=== PATIENT | female | born 1980 | race Caucasian/White ===

== ENCOUNTER 2016-09-25 14:36 | Emergency (ER) | payer OTHER ==
[2016-09-25 14:46] VITALS: RESP 18; TEMP 98.2
[2016-09-25] MEDS ORDERED: ACETAMINOPHEN TAB 500 MG TAB PO STA (15:47)
--- NOTE | 2016-09-25 15:51 | ED ---
General Adult HPI - General Chief complaint: Dental/Oral Stated complaint: Denatl Pain Time Seen by Provider: 09/25/16 15:40 Source: patient, RN notes reviewed Mode of arrival: ambulatory Limitations: no limitations - History of Present Illness Initial comments: This is a 36-year-old female presents with left-sided dental pain 2 days. Patient states she has multiple teeth missing but has never had pain this bad. Patient states she was on the way to the dentist today but was 10 minutes late so the dentist would not see her. Patient denies any fever/chills, vomiting/ diarrhea, sore throat, shortness of breath or dysphagia. Patient admits to some left-sided otalgia and to headache. Patient admits that she is approximately 11 weeks . Patient denies any purulent drainage or foul odor.Patient denies any recent chest pain, abdominal pain, back pain, numbness, tingling, hematuria, or visual changes, or any other complaints. - Related Data Previous Rx's Medication Instructions Recorded Amoxicillin 500 mg PO Q12HR 7 Days 09/25/16 Allergies Allergy/AdvReac Type Severity Reaction Status Date / Time venom-honey bee Allergy Anaphylaxis Verified 09/25/16 14:46 [bee venom (honey bee)] Review of Systems ROS Statement: Those systems with pertinent positive or pertinent negative responses have been documented in the HPI. ROS Other: All systems not noted in ROS Statement are negative. 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 Last drink 05/06/15 Past Drug Use History: Marijuana Additional Drug Use History / Comment(s): Marijuana used 2 days ago, "alot". - Past Family History Mother Family Medical History: Hyperlipidemia General Exam - General Exam Comments Initial Comments: General: The patient is awake and alert, in no distress, and does not appear acutely ill. Eye: Pupils are equal, round and reactive to light, extra-ocular movements are intact. No nystagmus. There is normal conjunctiva bilaterally. No signs of icterus. Ears: TMs pink and pearly with intact cone light bilaterally. Normal external ear canals. Mouth and throat: Multiple areas of tooth decay. Multiple cavities. Multiple fractured teeth to upper and lower gumlines. No purulent drainage, erythema, swelling, no sign of abscess. Patient is tender to palpation over teeth 11 through 15 approximately. There is some mild external facial swelling to the lower left jaw line. There are moist mucous membranes and no oral lesions. Neck: Left-sided submandibular lymph node present and tender. The neck is supple, there is no JVD. Cardiovascular: There is a regular rate and rhythm. No murmur, rub or gallop is appreciated. Respiratory: Lungs are clear to auscultation, respirations are non-labored, breath sounds are equal. No wheezes, stridor, rales, or rhonchi. Musculoskeletal: Normal ROM, no tenderness. Strength 5/5. Sensation intact. Radial Pulses equal bilaterally 2+. Neurological: A&O x 3. CN II-XII intact, There are no obvious motor or sensory deficits. Coordination appears grossly intact. Speech is normal. Skin: Mild external facial swelling to the lower left jaw line. No erythema, warmth or ecchymosis. Skin is warm and dry and no rashes or lesions are noted. Psychiatric: Cooperative, appropriate mood & affect, normal judgment. Limitations: no limitations Course Vital Signs 09/25/16 09/25/16 14:43 15:59 Temperature 98.2 F 98.2 F Pulse Rate 106 H 72 Respiratory 18 18 Rate Blood Pressure 168/114 158/93 O2 Sat by Pulse 100 100 Oximetry Medical Decision Making - Medical Decision Making This is a 36-year-old female presents with left-sided pain 2 days. On physical exam there are multiple areas of tooth decay. Multiple cavities. Multiple fractured teeth to the top and bottom gumline. No purulent drainage, erythema, swelling, no sign of abscess. Patient is tender to palpation over teeth 11 through 15 approximately. There is some mild external facial swelling to the lower jaw line. There are moist mucous membranes and no oral lesions. Left-sided submandibular lymph node present and tender. The neck is supple. Patient is afebrile in the EC. Discussed that since the patient is Tylenol is the only thing available for pain. Discussed warm compresses. Patient was given a dose of Tylenol in the EC today. Discussed the patient will be started on a course of amoxicillin. Discussed return parameters. Discussed close follow-up with a dentist. ([facility] dental plan: [id number] [facility] [place] [address], . [employer]: Have to pay $50 for x-rays and the rest is covered. [phone].) Discussed that patient should follow up with PCP in one to 2 days or return to the EC for any worsening symptoms or for any further concerns. Patient was receptive to this plan and patient will be discharged home. I discussed his case with attending physician Dr. Schmidt who agrees the plan as stated above. Disposition Clinical Impression: Pain, dental Disposition: HOME SELF-CARE Condition: Good Instructions: Toothache (ED) Additional Instructions: Please use antibiotics as prescribed. Please use [id number] Tylenol for pain. Use warm compresses to the area. Please follow-up with dentist as soon as possible. [facility] dental plan: [address] [place] [address], . [employer]: Have to pay $50 for x-rays and the rest is covered. [phone]. Please follow up with PCP tomorrow or return to the EC for any worsening symptoms or for any further concerns. Prescriptions: Amoxicillin 500 mg PO Q12HR 7 Days Referrals: None,Stated [Primary Care Provider] - 1-2 days
[2016-09-25 16:00] VITALS: BP 158/93; PULSE 72
== END 2016-09-25 16:03 | disposition home or self-care (01) ==
LOC: EC 14:36
DX: O26.91 Pregnancy related conditions, unspecified, first trimester (principal); K08.89 Other specified disorders of teeth and supporting structures; Z3A.11 11 weeks gestation of pregnancy; Z91.030 Bee allergy status; F17.200 Nicotine dependence, unspecified, uncomplicated
CPT/HCPCS: 99282

== ENCOUNTER → 2017-01-30 | Outpatient (CLI) | payer OTHER ==
[2017-01-30 12:58] LABS: Basophils % (A) 0 %; CH 32.1; CHCM 33.9; Eosinophils # (A) 0.1 k/uL (0-0.7); Eosinophils % (A) 1 %; HCT 36.5 % (34.0-46.0); HDW 2.47; HGB 12.1 gm/dL (11.4-16.0); Luc # (Auto) 0.22; Luc % (Auto) 2; Lymphocytes # (A) 2.1 k/uL (1.0-4.8); Lymphocytes % (A) 18 %; MCH 31.8 pg (25.0-35.0); MCHC 33.3 g/dL (31.0-37.0); MCV 95.4 fL (80.0-100.0); Mean Platelet Volume 6.4; Monocytes # (A) 0.5 k/uL (0-1.0); Monocytes % (A) 4 %; Neutrophils # (A) 8.9 k/uL (1.3-7.7); Neutrophils % (A) 75 %; RBC 3.82 m/uL (3.80-5.40); RDW 13.1 % (11.5-15.5); WBC 11.9 k/uL (3.8-10.6); WBC (Perox) 12.34
[2017-01-30 13:08] LABS: Creatinine,Urine Random 267.7 mg/dL
[2017-01-30 13:19] LABS: Bilirubin, Delta 0.2 mg/dL (0.0-0.2); Total Bilirubin 0.3 mg/dL (0.2-1.3); Total Protein 6.8 g/dL (6.3-8.2)
[2017-01-31 07:18] LABS: HIV-1/HIV-2 Ab Screen NONREAC (NON REAC)
== END | disposition home or self-care (01) ==
LOC: LABWHC1 11:08
PROVIDERS: ATTEND Midwife
DX: O13.9 Gestational [pregnancy-induced] hypertension without significant proteinuria, unspecified trimester (principal)
CPT/HCPCS: 36415; 80076; 81050; 82570; 82950; 84156; 85025; 86780; 87389

== ENCOUNTER → 2017-03-06 | Outpatient (CLI) | payer OTHER ==
[2017-03-06 15:46] LABS: Bilirubin, Delta 0.3 mg/dL (0.0-0.2); Total Bilirubin 0.5 mg/dL (0.2-1.3); Total Protein 6.9 g/dL (6.3-8.2)
[2017-03-06 16:03] LABS: Creatinine,Urine Random 237.2 mg/dL
== END | disposition home or self-care (01) ==
LOC: LABWHC1 14:57
PROVIDERS: ATTEND Midwife
DX: O13.9 Gestational [pregnancy-induced] hypertension without significant proteinuria, unspecified trimester (principal)
CPT/HCPCS: 36415; 80076; 81050; 82570; 84156

== ENCOUNTER 2017-03-31 00:22 | Emergency (ER) | payer OTHER ==
[2017-03-31] MEDS ORDERED: ACETAMINOPHEN TAB 325 MG TAB ONE (02:18)
[2017-03-31] MEDS ORDERED: CEPHALEXIN 500 MG CAP ONE (02:18)
[2017-03-31 05:46] LABS: Partial Thromboplastin Time 25.8 sec (22.0-30.0); Prothrombin Time 9.9 sec (9.0-12.0)
[2017-03-31 05:50] LABS: Basophils # (A) 0.1 k/uL (0-0.2); Basophils % (A) 1 %; CH 32.4; CHCM 34.7; Eosinophils # (A) 0.2 k/uL (0-0.7); Eosinophils % (A) 1 %; HCT 39.4 % (34.0-46.0); HDW 2.43; HGB 13.7 gm/dL (11.4-16.0); Luc # (Auto) 0.25; Luc % (Auto) 2; Lymphocytes % (A) 34 %; MCH 32.6 pg (25.0-35.0); MCHC 34.7 g/dL (31.0-37.0); Mean Platelet Volume 6.3; Monocytes # (A) 0.6 k/uL (0-1.0); Monocytes % (A) 5 %; Neutrophils # (A) 6.8 k/uL (1.3-7.7); Neutrophils % (A) 57 %; RBC 4.19 m/uL (3.80-5.40); RDW 13.5 % (11.5-15.5); WBC (Perox) 11.32
[2017-03-31 05:56] LABS: ALT 29 U/L (9-52); AST 18 U/L (14-36); Alkaline Phosphatase 87 U/L (38-126); Amylase 44 U/L (30-110); Anion Gap 11 mmol/L; Blood Urea Nitrogen 13 mg/dL (7-17); Calcium 9.1 mg/dL (8.4-10.2); Carbon Dioxide 17 mmol/L (22-30); Chloride 112 mmol/L (98-107); Glucose 78 mg/dL (74-99); Magnesium 1.6 mg/dL (1.6-2.3); Non-African American GFR(MDRD) >60 (>60 ml/min/1.73 sqM); Potassium 4.1 mmol/L (3.5-5.1); Sodium 140 mmol/L (137-145); Total Bilirubin 0.2 mg/dL (0.2-1.3)
[2017-03-31 06:10] LABS: Appearance,Urine Cloudy (Clear); Bacteria,Urine Rare /hpf; Bilirubin,Urine Negative (Negative); Glucose,Urine (UA) Negative (Negative); Ketones,Urine Negative (Negative); Leukocyte Esterase,Urine Large (Negative); Mucus,Urine Rare /hpf; Nitrite,Urine Negative (Negative); Particle Count 26540; Protein,Urine 2+ (Negative); RBC,Urine >182 /hpf (0-5); Specific Gravity,Urine 1.026 (1.001-1.035); Squamous Epithelial Cell,Urine 5 /hpf (0-4); UA Billing (MACRO vs. MICRO) MICRO; Urobilinogen,Urine <2.0 mg/dL (<2.0); WBC,Urine 135 /hpf (0-5)
[2017-03-31] MEDS ORDERED: SODIUM CHLORIDE 0.9% 1,000 ML BAG ONE (07:04)
== END 2017-03-31 02:15 | disposition home or self-care (01) ==
LOC: EC 00:22
DX: O86.20 Urinary tract infection following delivery, unspecified (principal); O99.89 Other specified diseases and conditions complicating pregnancy, childbirth and the puerperium; N81.10 Cystocele, unspecified; Z79.899 Other long term (current) drug therapy
CPT/HCPCS: 36415; 80053; 81001; 82150; 83690; 83735; 85025; 85610; 85730; 96360; 99284

== ENCOUNTER → 2018-03-05 | Outpatient (CLI) | payer OTHER ==
[2018-03-05 15:18] LABS: HCT 33.6 % (34.0-46.0); HGB 11.6 gm/dL (11.4-16.0); MCH 31.2 pg (25.0-35.0); MCHC 34.4 g/dL (31.0-37.0); MCV 90.7 fL (80.0-100.0); Mean Platelet Volume 6.2; Platelet Count 449 k/uL (150-450); RDW 13.5 % (11.5-15.5); WBC 12.3 k/uL (3.8-10.6)
[2018-03-05 15:29] LABS: Glucose 76 mg/dL (74-99)
--- NOTE | 2018-03-05 17:13 | US ---
EXAMINATION TYPE: US OB anatomy TA twin DATE OF EXAM: 03/05/2018 COMPARISON: NONE CLINICAL HISTORY: O36.62X0 large for dates 2nd trimester. Pt states confirm dates, LGA EXAMINATION TYPE: US OB anatomy TA twin DATE OF EXAM: 03/05/2018 COMPARISON: None TECHNIQUE: Transabdominal (TA) GESTATIONAL AGE / DATING Physician Established: (23 weeks/3 days) EDC: 06/29/2018 Dates by LMP: Unknown Dates by First Scan: No prior Dates by Current Scan Baby A: (19 weeks/3 days) EDC: 07/27/2018 Dates by Current Scan Baby B: (19 weeks/5 days) EDC: 07/25/2018 GENERAL TWIN SURVEY TWIN A LOCATION in regards to maternal abd: Right TWIN B LOCATION in regards to maternal abd: Left MEMBRANE SEEN: Yes CERVICAL LENGTH (transabdominal; norm > 3.0cm): 3.2 cm TWIN A: SURVEY/BIOMETRY PLACENTA: Posterior PREVIA: Low Lying MUNDO: 11.6 cm Normal PRESENTATION: Breech BPD: 4.5 cm 19 weeks / 5 days HC: 17.2 cm 19 weeks / 5 days AC: 14.0 cm 19 weeks / 2 days FL: 3.1 cm 19 weeks / 5 days ESTIMATED WEIGHT IN GRAMS: 296.8 grams ESTIMATED WEIGHT IN LBS/OZS: 0 lbs. 10 oz. WEIGHT PERCENTAGE BASED ON ESTABLISHED DATES: <3%% HC/AC: 1.23 Normal FL/AC: 22 Normal HEART RATE: 154 bpm RHYTHM: Normal ANATOMY SEEN (within normal limits): * Lateral Vent (< 1 cm) 0.6 cm * Cisterna Magna (< 1.1 cm) 0.5 cm * Nuchal Fold (< .6 cm) 0.2 cm * Cerebellum (varies with age) 2.0 cm Choroid Plexus (bilateral) Midline Falx Cavus Septi Pellucidi Four Chamber Heart Outflow tracts: LVOT Stomach Situs Diaphragm Bladder Cord Insert Three Vessel Cord Arms (bilateral) Legs (bilateral) Longitudinal Spine Transverse Spine ANATOMY NOT SEEN: RVOT - position Kidneys (bilateral) - position Nose / Lips - position TWIN B: SURVEY/BIOMETRY PLACENTA: Fundal PREVIA: No Previa MUNDO:? 10.6 cm??Normal PRESENTATION: Variable LIE: Transverse with head maternal Left BPD: 4.5 cm 19 weeks / 5 days HC: 17.2 cm 19 weeks / 5 days AC: 14.7 cm 20 weeks / 0 days FL: 3.2 cm 20 weeks / 0 days ESTIMATED WEIGHT IN GRAMS: 322.3 grams ESTIMATED WEIGHT IN LBS/OZS: 0 lbs. 11 oz. WEIGHT PERCENTAGE BASED ON ESTABLISHED DATES: <3%% HC/AC: 1.17 Normal FL/AC: 22 Normal HEART RATE: 143 bpm RHYTHM: Normal ANATOMY SEEN (within normal limits): * Lateral Vent (< 1 cm) 0.5 cm * Cisterna Magna (< 1.1 cm) 0.4 cm * Nuchal Fold (< .6 cm) 0.2 cm * Cerebellum (varies with age) 2.0 cm Choroid Plexus (bilateral) Midline Falx Cavus Septi Pellucidi Four Chamber Heart Outflow tracts: LVOT/RVOT Stomach Situs Nose / Lips Diaphragm Kidneys (bilateral) Bladder Cord Insert Three Vessel Cord Arms (bilateral) Legs (bilateral) ANATOMY NOT SEEN: Longitudinal Spine - position Transverse Spine - position Viable Twin gestation/membrane visualized/ visualized anatomy appears wnl at this time within both fetuses IMPRESSION: 1. Twin gestation with heart rate of twin A of 154 bpm and heart rate of twin B 143 bpm. Some anatomy is not seen of both twins as described above. Patient can return for additional anatomy exam. 2. Placenta is noted to be low-lying and can be reassessed later in gestation. 3. Sonographic gestational age of twin A of 19 weeks and 3 days and of twin B of 19 weeks and 5 days, discordant with the physician established dates. ?
[2018-03-05 20:48] LABS: HIV AB P24 Non-Reactive (Non-Reactive); HIV P24 AG Non-Reactive (Non-Reactive)
== END ==
LOC: RADUSWWP 14:59
PROVIDERS: ATTEND Obstetrics & Gynecology
DX: O30.002 Twin pregnancy, unspecified number of placenta and unspecified number of amniotic sacs, second trimester (principal); O36.62X0 Maternal care for excessive fetal growth, second trimester, not applicable or unspecified; O26.812 Pregnancy related exhaustion and fatigue, second trimester; Z3A.23 23 weeks gestation of pregnancy
CPT/HCPCS: 36415; 76811; 76812; 82565; 82947; 85027; 86762; 86780; 86850; 86900; 86901; 87340; 87390

== ENCOUNTER → 2018-04-21 | Outpatient (CLI) | payer OTHER ==
[2018-04-21 13:23] LABS: HCT 32.4 % (34.0-46.0); HGB 10.9 gm/dL (11.4-16.0); MCH 31.6 pg (25.0-35.0); MCHC 33.5 g/dL (31.0-37.0); MCV 94.3 fL (80.0-100.0); Mean Platelet Volume 6.3; Platelet Count 339 k/uL (150-450); RBC 3.44 m/uL (3.80-5.40); RDW 13.4 % (11.5-15.5); WBC 12.7 k/uL (3.8-10.6)
== END | disposition home or self-care (01) ==
LOC: LABWHC1 11:27
PROVIDERS: ATTEND Obstetrics & Gynecology
DX: Z34.82 Encounter for supervision of other normal pregnancy, second trimester (principal); Z3A.00 Weeks of gestation of pregnancy not specified
CPT/HCPCS: 36415; 82950; 85027

== ENCOUNTER 2018-06-08 15:39 | Outpatient (CLI) | payer OTHER ==
[2018-06-08 17:07] VITALS: BP 141/79; PULSE 96; RESP 16; TEMP 97.4
--- NOTE | 2018-07-23 18:02 | P.MSEPDOC ---
Presenting Problems - Arrival Data Date of Arrival on Unit: 06/08/18 Time of Arrival on Unit: 15:39 Mode of Transport: Ambulatory - Complaint OB-Reason for Admission/Chief Complaint: NST Comment: pt here per dr lind orders for nst, pt reports + fm x2, reports occasional contractions that are not painful, denies lof/vb, pt reports mild headache this afternoon and reports that she had blurry vision earlier today that is now resolved Medical History - Information : 10 Para: 4 Term: 4 : 0 Abortions: Spontaneous or Elective: 5 Number of Living Children: 4 - Gestational Age Gestational Age by BISI (wks/days): 33 Weeks and 2 Days - History Complications: Multiple Review of Systems - Review of Systems Constitutional: No problems Breast: No problems ENT: No problems Cardiovascular: No problems Respiratory: No problems Gastrointestinal: No problems Genitourinary: No problems Musculoskeletal: No problems Neurological: No problems Skin: No problems Vital Signs - Temperature Temperature: 97.4 F Temperature Source: Temporal Artery Scan - Pulse Right Brachial Pulse Rate: 96 Pulse Assessment Method: Automatic Cuff - Respirations Respiratory Rate: 16 Oxygen Delivery Method: Room Air O2 Sat by Pulse Oximetry: 97 - Blood Pressure Right Arm Blood Pressure: 141/79 Blood Pressure Mean: 99 Blood Pressure Source: Automatic Cuff - Comment Vital Signs Comment: bp recheck 115/77 and 120/76 Medical Screen Scoring (Pre) - Cervical Exam Dilation: Exam Deferred Effacement: Exam Deferred Membranes: Intact - Uterine Contractions Frequency: > 5 minutes apart = 1 Duration: > 40 seconds = 2 Intensity: N/A - Maternal Vital Signs Maternal Temperature: N/A Maternal Blood Pressure: N/A Signs of Preeclampsia: N/A Maternal Respirations: N/A - Pain Assessment Pain Scale Used: Numeric (1 - 10) Pain Intensity: 0 - Maternal Trauma Maternal Trauma: N/A - Assessment Baseline FHR: 135, 140 Heart Rate - NICHD Category: Category I (Normal) = 0 NST: Reactive Position: N/A Station: N/A - Total Score Total Score (Pre): 3 - Level of Risk Level of Risk: Low (0-5) Physician Notification (Pre) - Physician Notified Physician Notified Date: 06/08/18 Physician Notified Time: 16:14 Physician/Practitioner Notifed:: Dr Marquis Spoke With: Dr Marquis New Order Received: Yes (dc home) Disposition - Disposition OB Disposition: Discharge to home, Written follow up instructions reviewed Discharge Date: 06/08/18 Discharge Time: 16:15 I agree with the RN Medical Screening Exam: Yes Risk & Benefit of care provided described in d/c instruction: Yes Diagnosis: RELATED CONDITIONS, UNSPECIFIED, THIRD TRIMESTER
== END 2018-06-08 16:15 | disposition home or self-care (01) ==
LOC: FBPOP 15:39
PROVIDERS: ATTEND Obstetrics & Gynecology
DX: O26.93 Pregnancy related conditions, unspecified, third trimester (principal); Z3A.33 33 weeks gestation of pregnancy
CPT/HCPCS: 59025; G0463; 99213

== ENCOUNTER 2018-06-11 11:16 | Outpatient (CLI) | payer OTHER ==
--- NOTE | 2018-07-04 08:09 | P.MSEPDOC ---
Presenting Problems - Arrival Data Date of Arrival on Unit: 06/11/18 Time of Arrival on Unit: 11:16 Mode of Transport: Ambulatory Medical Screen Scoring (Post) - Cervical Exam Dilation: Exam Deferred Effacement: Exam Deferred Membranes: Intact - Uterine Contractions Frequency: N/A Duration: N/A Intensity: N/A - Maternal Vital Signs Maternal Temperature: N/A Maternal Blood Pressure: N/A Signs of Preeclampsia: N/A Maternal Respirations: N/A - Maternal Trauma Maternal Trauma: N/A - Assessment NST: Reactive Position: N/A Station: N/A - Total Score Total Score (Post): 0 - Post Treatment Level of Risk Post Treatment Level of Risk: Low (0-5) Physician Notification (Post) - Physician Notified Physician Notified Date: 06/11/18 Physician Notified Time: 12:00 Spoke With: Dr Street New Order Received: Yes - Notification Comment Comment: pt here for twin gestation NST's. reported reactive NST's and bp's to OB. orders received to dc pt home per t.oJosefina Street Disposition - Disposition OB Disposition: Triage, Discharge to home, Written follow up instructions reviewed Discharge Date: 06/11/18 Discharge Time: 12:08 I agree with the RN Medical Screening Exam: Yes Risk & Benefit of care provided described in d/c instruction: Yes Diagnosis: PREG CARE FOR PATIENT W RECURRENT PREG LOSS, THIRD TRIMESTER (nst twins)
== END 2018-06-11 12:08 | disposition home or self-care (01) ==
LOC: FBPOP 11:16
PROVIDERS: ATTEND Obstetrics & Gynecology
DX: O26.23 Pregnancy care for patient with recurrent pregnancy loss, third trimester (principal); O30.003 Twin pregnancy, unspecified number of placenta and unspecified number of amniotic sacs, third trimester; Z3A.00 Weeks of gestation of pregnancy not specified
CPT/HCPCS: 59025; G0463; 99213

== ENCOUNTER 2018-06-15 14:55 | Outpatient (CLI) | payer OTHER ==
[2018-06-15 17:52] VITALS: BP 120/76; PULSE 96; RESP 16; TEMP 98.8
--- NOTE | 2018-07-04 08:11 | P.MSEPDOC ---
Presenting Problems - Arrival Data Date of Arrival on Unit: 06/15/18 Time of Arrival on Unit: 14:55 Mode of Transport: Ambulatory - Complaint OB-Reason for Admission/Chief Complaint: NST Comment: pt states here for bi weekly NST twins Medical History - Information : 10 Para: 4 Term: 4 : 0 Abortions: Spontaneous or Elective: 4 Number of Living Children: 4 - Gestational Age Gestational Age by BISI (wks/days): 34 Weeks and 2 Days Review of Systems - Review of Systems Constitutional: No problems Breast: No problems ENT: No problems Cardiovascular: No problems Respiratory: No problems Gastrointestinal: No problems Genitourinary: No problems Musculoskeletal: No problems Neurological: No problems Skin: No problems Vital Signs - Temperature Temperature: 98.8 F Temperature Source: Oral - Pulse Right Pulse Rate: 96 Pulse Assessment Method: Automatic Cuff - Respirations Respiratory Rate: 16 Oxygen Delivery Method: Room Air O2 Sat by Pulse Oximetry: 98 - Blood Pressure Right Arm Blood Pressure: 120/76 Blood Pressure Mean: 90 Blood Pressure Source: Automatic Cuff Medical Screen Scoring (Pre) - Cervical Exam Dilation: Exam Deferred Effacement: Exam Deferred Membranes: Intact - Uterine Contractions Frequency: N/A Duration: N/A Intensity: N/A - Maternal Vital Signs Maternal Temperature: N/A Maternal Blood Pressure: N/A Signs of Preeclampsia: N/A Maternal Respirations: N/A - Pain Assessment Pain Scale Used: Numeric (1 - 10) Pain Intensity: 0 Pain Management Goal: 2 Pain Behavior: None Exhibited - Maternal Trauma Maternal Trauma: N/A - Assessment Baseline FHR: baby a 135 baby b 135 nst reactive baby a and b Heart Rate - NICHD Category: Category I (Normal) = 0 NST: Reactive Position: N/A Station: N/A - Total Score Total Score (Pre): 0 - Level of Risk Level of Risk: N/A Physician Notification (Pre) - Physician Notified Physician Notified Date: 06/15/18 Physician Notified Time: 16:00 Physician/Practitioner Notifed:: Dr Street Spoke With: Dr Street New Order Received: Yes - Notification Comment Comment: Discharge home Disposition - Disposition OB Disposition: Discharge to home Discharge Date: 06/15/18 Discharge Time: 16:07 I agree with the RN Medical Screening Exam: Yes Risk & Benefit of care provided described in d/c instruction: Yes Diagnosis: RELATED CONDITIONS, UNSPECIFIED, THIRD TRIMESTER (nst twins )
== END 2018-06-15 16:07 | disposition home or self-care (01) ==
LOC: FBPOP 14:55
PROVIDERS: ATTEND Obstetrics & Gynecology
DX: O30.003 Twin pregnancy, unspecified number of placenta and unspecified number of amniotic sacs, third trimester (principal); Z3A.34 34 weeks gestation of pregnancy
CPT/HCPCS: 59025

== ENCOUNTER 2018-06-19 11:27 | Observation (INO) | payer OTHER ==
--- NOTE | 2018-06-19 12:56 | US ---
EXAMINATION TYPE: US OB >= 14 wk twins DATE OF EXAM: 06/19/2018 COMPARISON: US 2017 CLINICAL HISTORY: MUNDO EFW twins. Sent by physician, for MUNDO and EFW GESTATIONAL AGE / DATING Physician Established: (34 weeks/6 days) EDC: 07/25/2018 Dates by LMP: Unknown Dates by First Scan for Baby A: (30 weeks/5 days) EDC: 07/27/2018 Dates by First Scan for Baby B: (33 weeks/3 days) EDC: 07/25/2018 Dates by Current Scan for Baby A: (32 weeks/5 days) EDC: 08/09/2018 Dates by Current Scan for Baby B: (34 weeks/1 days) EDC: 07/30/2018 MEMBRANE SEEN: yes TWIN A: SURVEY/BIOMETRY MUNDO:? 11.3 cm?Normal BPD: 8.2 cm 33 weeks / 0 days HC: 29.9 cm 33 weeks / 1 days AC: 27.8 cm 31 weeks / 6 days FL: 6.5 cm 33 weeks / 4 days ESTIMATED WEIGHT IN GRAMS: 2010 grams ESTIMATED WEIGHT IN LBS/OZS: 4 lbs. 7 oz. WEIGHT PERCENTAGE BASED ON ESTABLISHED DATES: 4% HC/AC: 1.08 Normal FL/AC: 23.46 Normal HEART RATE: 133 bpm RHYTHM: Normal TWIN B: SURVEY/BIOMETRY MUNDO: 14.3cm Normal BPD: 8.6 cm 34 weeks / 4 days HC: 31.3 cm 35 weeks / 1 days AC: 28.5 cm 32 weeks / 4 days FL: 6.8 cm 34 weeks / 6 days ESTIMATED WEIGHT IN GRAMS: 2244 grams ESTIMATED WEIGHT IN LBS/OZS: 4 lbs. 15 oz. WEIGHT PERCENTAGE BASED ON ESTABLISHED DATES: 16% HC/AC: 1.10 Normal FL/AC: 23.73 Normal HEART RATE: 166 bpm RHYTHM: Normal Viable twin IUP with baby A measuring 32 weeks 5 days with a heart rate of 133bpm and an estimated de livery date of 08/09/2018 and normal MUNDO, and baby B measuring 34 weeks 1 day with a heart rate of 16 6bpm and an estimated delivery date of 07/30/2018 and normal MUNDO. Tech sheet given to patient's nurse (Valerie) at end of exam. IMPRESSION: 1. Twin gestation with normal MUNDO of 11.3 cm for twin A and 14.3 cm for twin B. 2. Twin A measuring 32 weeks 5 days gestation with cardiac activity of 133 bpm. 3. Twin B measuring 34 weeks 1 days gestation with cardiac activity of 166 bpm.
[2018-06-19 13:46] VITALS: RESP 16
[2018-06-19 15:06] LABS: Appearance,Urine Clear (Clear); Bilirubin,Urine Negative (Negative); Blood,Urine Negative (Negative); Color,Urine Yellow; Glucose,Urine (UA) Negative (Negative); Ketones,Urine 2+ (Negative); Leukocyte Esterase,Urine Negative (Negative); Nitrite,Urine Negative (Negative); Protein,Urine Negative (Negative); Specific Gravity,Urine 1.017 (1.001-1.035); Urobilinogen,Urine <2.0 mg/dL (<2.0)
[2018-06-19] MEDS: ACETAMINOPHEN TAB 325 MG TAB PO PRN ×2 (15:32→21:16)
[2018-06-19 15:41] LABS: Basophils % (A) 0 %; Eosinophils # (A) 0.1 k/uL (0-0.7); Eosinophils % (A) 1 %; HCT 34.7 % (34.0-46.0); HGB 12.1 gm/dL (11.4-16.0); Lymphocytes % (A) 19 %; MCH 32.2 pg (25.0-35.0); MCV 92.1 fL (80.0-100.0); Monocytes # (A) 0.5 k/uL (0-1.0); Monocytes % (A) 4 %; Neutrophils # (A) 8.3 k/uL (1.3-7.7); Neutrophils % (A) 76 %; Platelet Count 332 k/uL (150-450); RBC 3.77 m/uL (3.80-5.40); RDW 13.1 % (11.5-15.5); WBC 10.9 k/uL (3.8-10.6)
[2018-06-19 15:58] LABS: ALT 23 U/L (9-52); AST 21 U/L (14-36); Blood Urea Nitrogen 7 mg/dL (7-17); LDH 347 U/L (313-618); Uric Acid 6.1 mg/dL (3.7-7.4)
--- NOTE | 2018-06-19 16:32 | P.HPOB ---
History of Present Illness H&P Date: 06/19/18 Chief Complaint: Intrauterine at 35 weeks: Gestational hypertension: Twins Margi is a 38-year-old G 10 P4 at 34 weeks 6 days gestation who arrived to my office complaining of pelvic pressure and discomfort as well as possible leaking of fluid. No leaking was noted on speculum exam no problems being/ ferning/nitrazine was noted either. She was sent to live labor delivery to rule out low MUNDO MUNDO was normal. However during course of her triage visit it was noted that her blood pressures were elevated on anywhere from 150/8290. Due to her history and twin gestation she was admitted for 24-hour urine and preeclamptic labs were drawn. All labs were essentially normal. No other gross findings this time. I've seen and evaluated her again this afternoon and she is stable. She denies headaches at this time, no visual changes and no epigastric pain. Deep tendon reflexes are also normal. heart tones have been category 1 tracings for both baby A and B. Assessment intrauterine with twins at 35 weeks. 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 Abcess in jaw ( hospitalized in [place] 12/2014) History of Any Multi-Drug Resistant Organisms: MRSA Date of last positivie culture/infection: 12/2014 MDRO Source:: inside mouth Additional Past Surgical History / Comment(s): D&C x5 Past Anesthesia/Blood Transfusion Reactions: No Reported Reaction Smoking Status: Former smoker - Past Family History Mother Family Medical History: Hyperlipidemia Medications and Allergies Home Medications Medication Instructions Recorded Confirmed Type Aspirin [Adult Low Dose Aspirin EC] 81 mg PO DAILY 06/08/18 06/19/18 History Pnv,Calcium 72/Iron/Folic Acid 1 each PO DAILY 06/08/18 06/19/18 History [ Plus Tablet] Allergies Allergy/AdvReac Type Severity Reaction Status Date / Time venom-honey bee Allergy Anaphylaxis Verified 06/19/18 11:29 [bee venom (honey bee)] Exam Osteopathic Statement: *. No significant issues noted on an osteopathic structural exam other than those noted in the History and Physical/Consult. Vital Signs Temp Pulse Resp BP 06/19/18 11:30 99.0 F 101 H 16 138/98 Intake and Output 06/19/18 06/19/18 06/19/18 06:59 14:59 22:59 Other: Weight 65.317 kg - OBG Physical Exam Breast: both: normal (no masses) Abdomen: bowel sounds normal, no diffuse tenderness, no bruit present, no guarding noted, no hepatomegaly, no splenomegaly, no mass Vulva: both: normal Vagina: normal moisture, no discharge Cervix: no lesion, no discharge Uterus: normal size, normal contour Adnexa: both: normal Anus/Rectum: normal perianal skin, no rectal mass, no hemorrhoids, heme negative Results Result Diagrams: 06/19/18 15:08 06/19/18 15:08 Abnormal Lab Results - Last 24 Hours (Table) 06/19/18 06/19/18 Range/Units 15:08 15:08 WBC 10.9 H (3.8-10.6) k/uL RBC 3.77 L (3.80-5.40) m/uL Neutrophils # 8.3 H (1.3-7.7) k/uL Creatinine 0.47 L (0.52-1.04) mg/dL
[2018-06-19 17:23] VITALS: BMI 26.3
[2018-06-20 00:40] VITALS: TEMP 98.1
[2018-06-20 04:29] VITALS: BP 101/57; PULSE 60
[2018-06-20 13:32] LABS: Collection Time,Urine 24 hrs; Total Volume 24 Hour,Urine 1050 mls (800-1800)
[2018-06-20 13:46] LABS: Creatinine 24 Hour,Urine 1151.9 mg/24hr (800.0-1800.0); Total Protein 24 Hour,Urine 116 mg/24hr (42.0-225.0)
--- NOTE | 2018-06-20 14:17 | P.DS ---
Providers Date of admission: 06/19/18 13:03 Expected date of discharge: 06/20/18 Attending physician: Raciel Street Primary care physician: Stated None Hospital Course: History very well. Blood pressures have all been normal in labor and delivery now. Labs and 24 urine are back in are normal. 80s have been reactive. We'll discharged home with her to follow-up with me next week. All the questions are answered for her and she is aware of labor symptoms and what to do should this occur and is also aware to return with any significant pain, bleeding or other issues. On physical exam vital signs are stable afebrile. Heart regular, lungs clear, extremities without pain. Gravid uterus is noted. Patient Condition at Discharge: Good Plan - Discharge Summary New Discharge Prescriptions: No Action Pnv,Calcium 72/Iron/Folic Acid [ Plus Tablet] 1 each PO DAILY Aspirin [Adult Low Dose Aspirin EC] 81 mg PO DAILY Discharge Medication List Aspirin [Adult Low Dose Aspirin EC] 81 mg PO DAILY 06/08/18 [History] Pnv,Calcium 72/Iron/Folic Acid [ Plus Tablet] 1 each PO DAILY 06/08/18 [ History] Follow up Appointment(s)/Referral(s): Raciel Street DO [Doctor of Osteopathic Medicine] - 1 Week Discharge Disposition: HOME SELF-CARE
--- NOTE | 2018-06-22 08:42 | P.MSEPDOC ---
Presenting Problems - Arrival Data Date of Arrival on Unit: 06/19/18 Time of Arrival on Unit: 11:27 Mode of Transport: Portable - Complaint OB-Reason for Admission/Chief Complaint: Observation/Evaluation Medical History - Information : 10 Para: 4 Term: 3 : 0 Abortions: Spontaneous or Elective: 5 Number of Living Children: 3 - Gestational Age Gestational Age by BISI (wks/days): 34 Weeks and 6 Days - History Complications: Multiple Review of Systems - Review of Systems Constitutional: No problems Breast: No problems ENT: No problems Cardiovascular: No problems Respiratory: No problems Gastrointestinal: No problems Genitourinary: No problems Musculoskeletal: No problems Neurological: No problems Skin: No problems Vital Signs - Temperature Temperature: 98.1 F Temperature Source: Temporal Artery Scan - Pulse Supine Pulse Rate: 60 Pulse Assessment Method: Automatic Cuff - Respirations Respiratory Rate: 16 - Blood Pressure Right Arm Blood Pressure: 101/57 Blood Pressure Mean: 71 Blood Pressure Source: Automatic Cuff Medical Screen Scoring (Pre) - Cervical Exam Dilation: Exam Deferred Effacement: Exam Deferred - Uterine Contractions Frequency: N/A Duration: N/A Intensity: N/A - Maternal Vital Signs Maternal Temperature: N/A Signs of Preeclampsia: N/A Maternal Respirations: N/A - Pain Assessment Pain Scale Used: Numeric (1 - 10) Pain Intensity: 0 Pain Management Goal: 0 Pain Behavior: None Exhibited - Maternal Trauma Maternal Trauma: N/A - Assessment Baseline FHR: 140 Heart Rate - NICHD Category: Category I (Normal) = 0 NST: Reactive - Total Score Total Score (Pre): 0 - Level of Risk Level of Risk: Low (0-5) Physician Notification (Pre) - Physician Notified Physician Notified Date: 06/19/18 Physician Notified Time: 13:10 Physician/Practitioner Notifed:: dr jackman New Order Received: Yes - Notification Comment Comment: PT ARRIVED ON UNIT WITH ORDERS FROM DR MENESES OFFICE Disposition - Disposition OB Disposition: Admit, Observe Transferred to:: [address] Discharge Date: 06/19/18 Discharge Time: 13:11 I agree with the RN Medical Screening Exam: Yes Risk & Benefit of care provided described in d/c instruction: Yes Diagnosis: GESTATIONAL HTN W/O SIGNIFICANT PROTEINURIA, THIRD TRIMESTER
== END 2018-06-20 15:00 | disposition home or self-care (01) ==
LOC: FBPOP 11:27 → 4FBP 13:03 → INTOOBSV 13:03
PROVIDERS: ADMIT Obstetrics & Gynecology; ATTEND Obstetrics & Gynecology
DX: O13.3 Gestational [pregnancy-induced] hypertension without significant proteinuria, third trimester (principal); O30.003 Twin pregnancy, unspecified number of placenta and unspecified number of amniotic sacs, third trimester; O26.23 Pregnancy care for patient with recurrent pregnancy loss, third trimester; O09.523 Supervision of elderly multigravida, third trimester; Z3A.35 35 weeks gestation of pregnancy; F10.21 Alcohol dependence, in remission; Z79.82 Long term (current) use of aspirin; Z91.030 Bee allergy status; Z86.14 Personal history of Methicillin resistant Staphylococcus aureus infection; Z87.891 Personal history of nicotine dependence; Z83.49 Family history of other endocrine, nutritional and metabolic diseases
CPT/HCPCS: 59025; 81050; 82565; 82570; 83615; 84450; 84460; 84520; 84550; 85025; 81003; 84156; 76815; G0378 ×3

== ENCOUNTER 2018-06-25 16:43 | Inpatient (IN) | payer OTHER ==
[2018-06-25] MEDS ORDERED: CITRIC ACID-SODIUM CITRATE 15 ML CUP PO ONE (17:18)
[2018-06-25] MEDS ORDERED: LACTATED RINGERS 1,000 ML IV ONE (17:18)
[2018-06-25 17:37] LABS: Basophils % (A) 0 %; Eosinophils # (A) 0.1 k/uL (0-0.7); Eosinophils % (A) 1 %; HCT 37.1 % (34.0-46.0); HGB 12.6 gm/dL (11.4-16.0); Lymphocytes # (A) 2.5 k/uL (1.0-4.8); Lymphocytes % (A) 23 %; MCH 31.6 pg (25.0-35.0); MCHC 33.9 g/dL (31.0-37.0); MCV 93.1 fL (80.0-100.0); Mean Platelet Volume 6.8; Monocytes # (A) 0.4 k/uL (0-1.0); Monocytes % (A) 4 %; Neutrophils # (A) 7.9 k/uL (1.3-7.7); Neutrophils % (A) 71 %; Platelet Count 331 k/uL (150-450); RBC 3.98 m/uL (3.80-5.40); RDW 13.1 % (11.5-15.5); WBC 11.1 k/uL (3.8-10.6)
[2018-06-25 17:52] LABS: INR 0.9 (<1.2); Partial Thromboplastin Time 23.1 sec (22.0-30.0); Prothrombin Time 9.3 sec (9.0-12.0)
[2018-06-25] MEDS ORDERED: ceFAZolin IN SWFI 2 GM/20 ML SYRINGE IVP ONE (18:00)
[2018-06-25] MEDS ORDERED: INFLUENZA VACCINE (6 MOS+) 60 MCG/0.5 ML SYRINGE IM ONE (18:34)
[2018-06-25 18:52] VITALS: BMI 26.5
[2018-06-25] MEDS: LACTATED RINGERS 1,000 ML IV SCH ×3 (19:05→23:38)
[2018-06-25] MEDS ORDERED: KETOROLAC 30 MG/ML 1 ML VIAL ONE (19:16)
[2018-06-25] MEDS ORDERED: HYDROmorphone (PF) 1 MG/ML ONE (19:16)
[2018-06-25] MEDS ORDERED: MORPHINE SULFATE (PF) 0.3 MG/0.3 ML SYR ONE (19:16)
[2018-06-25] MEDS ORDERED: OXYTOCIN 10 UNIT/ML 1 ML VIAL ONE (19:16)
[2018-06-25] MEDS ORDERED: ONDANSETRON 4 MG/2 ML VIAL ONE (19:16)
[2018-06-25] MEDS ORDERED: ACETAMINOPHEN TAB 325 MG TAB PO PRN (20:08)
[2018-06-25] MEDS ORDERED: diphenhydrAMINE 50 MG CAP PO PRN (20:08)
[2018-06-25] MEDS ORDERED: diphenhydrAMINE 50 MG/ML 1 ML VIAL IVP PRN ×2 (20:08)
[2018-06-25] MEDS ORDERED: ZOLPIDEM 5 MG TAB PO PRN (20:08)
[2018-06-25] MEDS ORDERED: METOCLOPRAMIDE 5 MG/ML 2 ML VIAL IVP PRN (20:08)
[2018-06-25] MEDS ORDERED: NALOXONE 0.4 MG/ML 1 ML VIAL IV PRN (20:08)
[2018-06-25] MEDS ORDERED: ONDANSETRON 4 MG/2 ML VIAL IVP PRN (20:08)
--- NOTE | 2018-06-25 20:12 | P.HPOB ---
History of Present Illness H&P Date: 06/25/18 Chief Complaint: Intrauterine at 35 weeks 5 days gestation: Twins: Active labor Margi is a 38-year-old at 35 weeks 5 days gestation who arrives in labor making cervical change despite minimal contractions with twins . The course from my standpoint had been generally unremarkable. She did have somewhat late start her care and I do not really begin seeing her approximately 1220 weeks. She did have a history of preeclampsia with earlier D &C and was advised take baby aspirin. She did see maternal- medicine for advanced maternal age, twins and history of preeclampsia. Unfortunately after an initial one or 2 visits she did not return to maternal- medicine as she was unable to get to those appointments and therefore we followed her as closely as possible here. She did receive nonstress tests at the hospital twice weekly after 32 weeks and we did do serial ultrasound to verify that the twins remained concordant. heart tracings are category 1 for both twin A and B this evening. Pertinent labs did include A+ blood type Rh antibody was negative, rubella immune, hepatitis B surface antigen was also negative as was HIV. 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 Abcess in jaw ( hospitalized in [place] 12/2014) History of Any Multi-Drug Resistant Organisms: MRSA Date of last positivie culture/infection: 12/2014 MDRO Source:: inside mouth Additional Past Surgical History / Comment(s): D&C x5 Past Anesthesia/Blood Transfusion Reactions: No Reported Reaction Smoking Status: Current some day smoker - Past Family History Mother Family Medical History: Hyperlipidemia Medications and Allergies Home Medications Medication Instructions Recorded Confirmed Type Aspirin [Adult Low Dose Aspirin EC] 81 mg PO DAILY 06/08/18 06/25/18 History Pnv,Calcium 72/Iron/Folic Acid 1 each PO DAILY 06/08/18 06/25/18 History [ Plus Tablet] Allergies Allergy/AdvReac Type Severity Reaction Status Date / Time venom-honey bee Allergy Anaphylaxis Verified 06/25/18 17:08 [bee venom (honey bee)] Exam Osteopathic Statement: *. No significant issues noted on an osteopathic structural exam other than those noted in the History and Physical/Consult. Vital Signs Temp Pulse Resp BP Pulse Ox 06/25/18 16:52 98.4 F 86 18 133/78 98 Intake and Output 06/25/18 06/25/18 06/25/18 06:59 14:59 22:59 Other: Weight 65.771 kg - OBG Physical Exam Breast: both: normal (no masses) Abdomen: bowel sounds normal, no diffuse tenderness, no bruit present, no guarding noted, no hepatomegaly, no splenomegaly, no mass Vulva: both: normal Vagina: normal moisture, no discharge Cervix: no lesion, no discharge Uterus: normal size, normal contour Adnexa: both: normal Anus/Rectum: normal perianal skin, no rectal mass, no hemorrhoids, heme negative She does have significant dental caries. She is somewhat underweight even for a 20 , but overall she is feeling well. Results Result Diagrams: 06/25/18 17:26 Abnormal Lab Results - Last 24 Hours (Table) 06/25/18 Range/Units 17:26 WBC 11.1 H (3.8-10.6) k/uL Neutrophils # 7.9 H (1.3-7.7) k/uL
--- NOTE | 2018-06-25 20:16 | P.OP ---
Date of Procedure: 06/25/18 Preoperative Diagnosis: Intrauterine with twins and family planning Postoperative Diagnosis: Same Procedure(s) Performed: Primary low transverse section with bilateral partial salpingectomy Anesthesia: spinal Surgeon: Raciel Street Compound Worker #1: Alma Donato Estimated Blood Loss (ml): 600 Pathology: other (Placenta) Condition: stable Disposition: floor Operative Findings: Twin A was a baby girl scores of 9 and 9 at one and 5 minutes respectively weight 4 lbs. 2 oz. Twin B was a baby boy scores 8 and 9 at one and 5 minutes [place] and weight of 4 lbs. 11 oz. Description of Procedure: Patient was taken to the operating suite where a spinal anesthetic was found be adequate. She was prepped and draped in normal sterile fashion and placed in dorsal supine position with leftward tilt. Initially a Pfannenstiel skin incision was made and this incision was then carried through to the underlying layer of the fashion with second knife. Fascia was then nicked in the midline and this opening was extended laterally with Rodriguez scissors. Superior and inferior aspect of this incision were then grasped tented up and bluntly and sharply dissected off the rectus muscles. Rectus muscles were then divided in the midline and blunt dissection through the peritoneum was made. This opening was then extended superiorly and inferiorly with good visualization of both bowel bladder. Bladder blade was then placed and the bladder flap identified and entered with Metzenbaum scissors and extended across face the uterus. Once this was accomplished knife was used to incise the uterus once the incision was made it was fully developed with hemostat and then bluntly extended. Baby A was then delivered without difficulty by elevating the head into the incision and with pressure pushing the baby down into the incision. Clear fluid was noted. Once baby a was delivered umbilical cord was clamped cut usual fashion an nursery personnel was present to assume care. Pizza Delivery Driver was also present at time of delivery. Baby B was then delivered in a similar fashion by elevating baby B's head into the incision artificial rupture membranes was performed and baby was delivered without difficulty. Should personnel was present to some care umbilical cord clamped and cut and mouth nares bulb suctioned. Placenta was then delivered intact and Pitocin was added to the IV. Uterus was then exteriorized cleared of clots and debris and closed in 2 layers with 0 Vicryl suture. Once excellent hemostasis was obtained blood and debris was suctioned from the posterior cul-de-sac. Attention was then turned fallopian tubes hemostat was placed in the mid way point fallopian tube and a window was created in the mesosalpinx with Bovie cautery. 2 proximal to distal 2-0 silk sutures were then placed and the intervening segment excised and tips cauterized. Once this was accomplished uterus was brought back into the uterus and the peritoneal layer was closed with 0 Vicryl suture fascial layer was then closed with 0 Vicryl suture. Due to very small amount of subcuticular tissue the skin was then just closed with 3-0 Vicryl in a running fashion. Patient tolerated surgery well sponge, and needles were all correct 2 and patient was then taken to the recovery room in stable and satisfactory condition.
[2018-06-25] MEDS: KETOROLAC 30 MG/ML 1 ML VIAL IVP PRN (21:23)
[2018-06-25] MEDS: HYDROcodone/APAP 7.5-325MG 1 EACH TAB PO PRN (23:42)
[2018-06-26] MEDS: KETOROLAC 30 MG/ML 1 ML VIAL IVP PRN (05:48)
[2018-06-26] MEDS: LACTATED RINGERS 1,000 ML IV SCH (06:38)
--- NOTE | 2018-06-26 06:55 | P.PN ---
Progress Note - Text Date: ime:[id number] Patient is status post . Patient seen this morning with VAS score of 5. c/o of pruritus, no c/o nausea/vomiting, comfortable and doing better today.
[2018-06-26] MEDS: SENNOSIDES-DOCUSATE SODIUM 1 EACH TAB PO SCH ×2 (07:20→20:33)
--- NOTE | 2018-06-26 08:44 | P.PNOBGPC ---
Subjective - Subjective Principal diagnosis: Postop day 1 Interval history: Overall doing very well. She is ambulating, and she is voiding. Vital signs are stable and afebrile. Patient reports: Reports appetite normal, Reports voiding normally, Reports pain well controlled, Reports ambulating normally [place]: in NICU Objective - Vital Signs Latest vital signs: Vital Signs Temp Pulse Resp BP Pulse Ox 06/26/18 07:17 98.2 F 53 L 16 98/57 06/26/18 04:00 58 L 16 104/64 97 06/26/18 00:29 97.8 F 64 16 115/71 99 06/26/18 00:00 16 06/25/18 22:15 97.5 F L 67 16 148/82 98 06/25/18 21:45 98.0 F 61 18 142/79 99 06/25/18 21:11 97.6 F 66 18 100 06/25/18 20:55 56 L 16 140/61 100 06/25/18 20:42 97.3 F L 65 18 137/80 97 06/25/18 20:30 97.2 F L 62 18 155/77 98 06/25/18 20:15 97.5 F L 68 18 129/92 100 06/25/18 20:05 97.2 F L 60 18 135/67 96 06/25/18 16:52 98.4 F 86 18 133/78 98 Intake and Output 06/25/18 06/26/18 06/26/18 22:59 06:59 14:59 Intake Total 900 Output Total 350 400 Balance 550 -400 Intake: IV 900 Lactated Ringers 1,000 ml 900 @ 125 mls/hr IV .Q8H [facility] Rx#:[id number] Output: Urine 350 400 Uretheral (Ryan) 400 Other: Voiding Method Indwelling Catheter Indwelling Catheter Weight 65.771 kg - Exam Lungs: bilateral: normal Chest: Normal S1, Normal S2 Extremities: Present: normal Abdomen: Present: normal appearance, soft. Absent: distention, tenderness Incision: Present: normal, dry, intact Uterus: Present: normal, firm - Labs Labs: Abnormal Lab Results - Last 24 Hours (Table) 06/25/18 Range/Units 17:26 WBC 11.1 H (3.8-10.6) k/uL Neutrophils # 7.9 H (1.3-7.7) k/uL
[2018-06-26 08:46] LABS: Basophils % (A) 0 %; Eosinophils # (A) 0.1 k/uL (0-0.7); Eosinophils % (A) 1 %; HCT 33.4 % (34.0-46.0); HGB 10.9 gm/dL (11.4-16.0); Lymphocytes # (A) 2.6 k/uL (1.0-4.8); Lymphocytes % (A) 20 %; MCH 31.1 pg (25.0-35.0); MCHC 32.7 g/dL (31.0-37.0); MCV 95.1 fL (80.0-100.0); Mean Platelet Volume 7.3; Monocytes # (A) 0.5 k/uL (0-1.0); Monocytes % (A) 4 %; Neutrophils # (A) 9.5 k/uL (1.3-7.7); Neutrophils % (A) 74 %; Platelet Count 285 k/uL (150-450); RBC 3.51 m/uL (3.80-5.40); RDW 13.3 % (11.5-15.5); WBC 12.8 k/uL (3.8-10.6)
[2018-06-26] MEDS: HYDROcodone/APAP 7.5-325MG 1 EACH TAB PO PRN ×2 (09:52→19:24)
[2018-06-26] MEDS: IBUPROFEN 600 MG TAB PO PRN ×2 (15:57→22:29)
[2018-06-26] MEDS: diphenhydrAMINE 25 MG CAP PO PRN (22:31)
[2018-06-26] MEDS: SIMETHICONE 80 MG CHEWABLE PO PRN (22:34)
[2018-06-27] MEDS: LACTATED RINGERS 1,000 ML IV SCH ×3 (02:21→02:22)
[2018-06-27] MEDS: HYDROcodone/APAP 7.5-325MG 1 EACH TAB PO PRN ×3 (03:10→17:53)
[2018-06-27] MEDS: IBUPROFEN 600 MG TAB PO PRN ×2 (06:46→14:50)
--- NOTE | 2018-06-27 07:34 | P.PNOBGPC ---
Subjective - Subjective Principal diagnosis: Status post primary low transverse postoperative day #2 Interval history: Patient seen and examined. Denies nausea, vomiting, chest pain, shortness of breath or calf pain. She is ambulating and voiding without difficulty. Her pain is controlled with Motrin and [place]. Patient reports: Reports appetite normal, Reports voiding normally, Reports pain well controlled, Reports ambulating normally Objective - Vital Signs Latest vital signs: Vital Signs Temp Pulse Resp BP 06/26/18 23:54 97.7 F 52 L 16 126/80 06/26/18 16:00 97.8 F 65 18 129/76 06/26/18 12:00 98.1 F 62 16 118/74 - Exam Lungs: bilateral: normal Chest: Normal S1, Normal S2 Extremities: Present: normal Abdomen: Present: normal appearance, soft. Absent: distention, tenderness Incision: Present: normal, dry, intact Uterus: Present: normal, firm - Labs Labs: Abnormal Lab Results - Last 24 Hours (Table) 06/26/18 Range/Units 08:26 WBC 12.8 H (3.8-10.6) k/uL RBC 3.51 L (3.80-5.40) m/uL Hgb 10.9 L (11.4-16.0) gm/dL Hct 33.4 L (34.0-46.0) % Neutrophils # 9.5 H (1.3-7.7) k/uL Assessment and Plan (1) Status post primary low transverse section Current Visit: Yes Status: Acute Code(s): Z98.891 - HISTORY OF UTERINE SCAR FROM PREVIOUS SURGERY SNOMED Code(s): 509767831 Plan: 1. Increase ambulation 2. Continue postoperative care
[2018-06-27] MEDS: SIMETHICONE 80 MG CHEWABLE PO PRN ×2 (07:42→14:50)
[2018-06-27] MEDS: SENNOSIDES-DOCUSATE SODIUM 1 EACH TAB PO SCH ×2 (07:42→19:46)
[2018-06-28] MEDS: HYDROcodone/APAP 7.5-325MG 1 EACH TAB PO PRN ×4 (00:50→19:50)
[2018-06-28] MEDS: diphenhydrAMINE 25 MG CAP PO PRN (00:50)
[2018-06-28] MEDS: SIMETHICONE 80 MG CHEWABLE PO PRN (06:36)
[2018-06-28] MEDS: SENNOSIDES-DOCUSATE SODIUM 1 EACH TAB PO SCH ×2 (08:51→19:50)
[2018-06-28] MEDS: IBUPROFEN 600 MG TAB PO PRN ×2 (08:51→17:16)
--- NOTE | 2018-06-28 09:58 | P.PNOBGPC ---
Subjective - Subjective Principal diagnosis: S/P 1*LTCS POD #3 Interval history: Pt seen and examined. Denies having, chest pain, shortness of breath or calf pain. She does have a mild cough. Patient reports: Reports appetite normal, Reports voiding normally, Reports pain well controlled, Reports ambulating normally Objective - Vital Signs Latest vital signs: Vital Signs Temp Pulse Resp BP 06/28/18 08:00 98.2 F 60 18 146/91 06/28/18 00:00 97.9 F 74 16 126/80 06/27/18 16:00 98.3 F 63 16 132/72 - Exam Lungs: bilateral: normal Chest: Normal S1, Normal S2 Extremities: Present: normal Abdomen: Present: normal appearance, soft. Absent: distention, tenderness Incision: Present: normal, dry, intact Uterus: Present: normal, firm Assessment and Plan (1) Status post primary low transverse section Current Visit: Yes Status: Acute Code(s): Z98.891 - HISTORY OF UTERINE SCAR FROM PREVIOUS SURGERY SNOMED Code(s): 975732251 Plan: 1. Increase in place 2. Pain control 3. Continue postoperative care
[2018-06-28 20:06] VITALS: RESP 16
[2018-06-29] MEDS: HYDROcodone/APAP 7.5-325MG 1 EACH TAB PO PRN ×3 (00:32→14:38)
[2018-06-29] MEDS: SENNOSIDES-DOCUSATE SODIUM 1 EACH TAB PO SCH (07:21)
[2018-06-29 09:00] VITALS: TEMP 98.3
[2018-06-29] MEDS: IBUPROFEN 600 MG TAB PO PRN (13:15)
--- NOTE | 2018-06-29 13:24 | P.DS ---
Providers Date of admission: 06/25/18 17:17 Expected date of discharge: 06/29/18 Attending physician: Raciel Street Primary care physician: Raciel Street Hospital Course: Negative is doing very well postop day 4. She is ambulating, voiding, and she is tolerating her diet. She voices no complaints. Vital signs are stable and afebrile. Heart regular, lungs clear, extremities without pain. Abdomen soft uterus is firm and lochia is reported light. Her incision is otherwise clean dry and intact. She is stable for discharge this time. Discharge instructions were thoroughly reviewed prescriptions for narcotic pain relief for Motrin were provided along with a talk about opioids discussion. Breast pump prescription also provided. She is stable for discharge at this time. Patient Condition at Discharge: Good Plan - Discharge Summary Discharge Rx Participant: No New Discharge Prescriptions: New HYDROcodone/APAP 5-325MG [[place] 5-325] 1 tab PO Q4HR PRN #30 tab PRN Reason: Pain Ibuprofen [Motrin] 600 mg PO Q6HR PRN #30 tab PRN Reason: Pain No Action Pnv,Calcium 72/Iron/Folic Acid [ Plus Tablet] 1 each PO DAILY Aspirin [Adult Low Dose Aspirin EC] 81 mg PO DAILY Discharge Medication List Aspirin [Adult Low Dose Aspirin EC] 81 mg PO DAILY 06/08/18 [History] Pnv,Calcium 72/Iron/Folic Acid [ Plus Tablet] 1 each PO DAILY 06/08/18 [ History] HYDROcodone/APAP 5-325MG [[place] 5-325] 1 tab PO Q4HR PRN #30 tab 06/29/18 [Rx] Ibuprofen [Motrin] 600 mg PO Q6HR PRN #30 tab 06/29/18 [Rx] Follow up Appointment(s)/Referral(s): Raciel Street DO [Primary Care Provider] - 1 Week Activity/Diet/Wound Care/Special Instructions: No heavy lifting, limit stairs and driving, and pelvic rest. If any high temperatures, heavy bleeding, or severe pain call my office Discharge Disposition: HOME SELF-CARE
[2018-06-29] MEDS: SIMETHICONE 80 MG CHEWABLE PO PRN (15:54)
[2018-06-29 17:33] VITALS: BP 136/72; PULSE 72
== END 2018-06-29 18:15 | disposition home or self-care (01) | DRG 785 ==
LOC: FBPOP 16:43 → 4FBP 17:17
PROVIDERS: ADMIT Obstetrics & Gynecology; ATTEND Obstetrics & Gynecology
PROC: 0UB70ZZ Excision of Bilateral Fallopian Tubes, Open Approach (ICD-10-PCS; 2018-06-25)
PROC: 10D00Z1 Extraction of Products of Conception, Low, Open Approach (ICD-10-PCS; principal; 2018-06-25 18:50)
DX: O30.003 Twin pregnancy, unspecified number of placenta and unspecified number of amniotic sacs, third trimester (principal); Z37.2 Twins, both liveborn; F17.200 Nicotine dependence, unspecified, uncomplicated; K21.9 Gastro-esophageal reflux disease without esophagitis; Z3A.35 35 weeks gestation of pregnancy; L29.9 Pruritus, unspecified; R05 Cough; Z79.82 Long term (current) use of aspirin; Z91.030 Bee allergy status; Z86.14 Personal history of Methicillin resistant Staphylococcus aureus infection; Z71.6 Tobacco abuse counseling; Z30.2 Encounter for sterilization
CPT/HCPCS: 59025; 85025; 85610; 85730; 86850; 86900; 86901; 88302; 88307

== ENCOUNTER 2019-02-27 17:46 | Emergency (ER) | payer OTHER ==
[2019-02-27 17:54] VITALS: BP 151/99; PULSE 95; RESP 16; TEMP 98
[2019-02-27] MEDS ORDERED: HYDROcodone/APAP 5-325MG 1 EACH TAB PO STA (18:21)
--- NOTE | 2019-02-27 18:21 | XR ---
EXAMINATION TYPE: XR knee 4V RT DATE OF EXAM: 02/27/2019 COMPARISON: NONE HISTORY: Knee pain TECHNIQUE: 4 views FINDINGS: I see no fracture nor dislocation. Joint spaces are normal. There is no definite joint effu moshe. There is minimal soft tissue swelling anterior to the patella. IMPRESSION: Mild soft tissue swelling. No fracture.
--- NOTE | 2019-02-27 18:28 | ED ---
General Adult HPI - General Chief complaint: Extremity Injury, Lower Stated complaint: Knee pain/injury Time Seen by Provider: 02/27/19 18:00 Source: patient, RN notes reviewed, old records reviewed Mode of arrival: wheelchair Limitations: no limitations - History of Present Illness Initial comments: 38-year-old female patient presents to ED with chief complaint of right knee injury. Patient reports that she was playing with children outside, slipped and fell forward onto a flexed knee. Patient she felt a pop on her patella. Patient states that she has pain in the medial aspect of her patella. Patient has been ambulatory, however with pain. Patient denies any trauma to head or neck. Patient denies any other complaints at this time. Patient states that she is not or breast feeding. Systemic: Pt denies fatigue, fever/chills, rash. Pt denies weakness, night sweats, weight loss. Neuro: Pt denies headache, visual disturbances, syncope or pre-syncope. HEENT: Pt denies ocular discharge or irritation, otalgia, rhinorrhea, pharyngitis or notable lymphadenopathy. Cardiopulmonary: Pt denies chest pain, SOB, heart palpitations, dyspnea on exertion. Abdominal/GI: Pt denies abdominal pain, n/v/d. : Pt denies dysuria, burning w/ urination, frequency/urgency. Denies new onset urinary or bowel incontinence. MSK: Pt denies loss of strength or function in extremities. Neuro: Pt denies new onset weakness, paresthesias. - Related Data Home Medications Medication Instructions Recorded Confirmed Ibuprofen [Motrin Ib] 400 mg PO Q6H PRN 02/27/19 02/27/19 Allergies Allergy/AdvReac Type Severity Reaction Status Date / Time venom-honey bee Allergy Anaphylaxis Verified 02/27/19 18:04 [bee venom (honey bee)] Review of Systems ROS Statement: Those systems with pertinent positive or pertinent negative responses have been documented in the HPI. ROS Other: All systems not noted in ROS Statement are negative. 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 Abcess in jaw (hospitalized in [place] 12/2014) History of Any Multi-Drug Resistant Organisms: MRSA Date of last positivie culture/infection: 12/2014 MDRO Source:: inside mouth Additional Past Surgical History / Comment(s): D&C x5 Past Anesthesia/Blood Transfusion Reactions: No Reported Reaction Past Psychological History: Anxiety, Bipolar, Depression Smoking Status: Current some day smoker - Past Family History Mother Family Medical History: Hyperlipidemia General Exam - General Exam Comments Initial Comments: Constitutional: NAD, AOX3, Pt has pleasant affect. HEENT: NC/AT, trachea midline, neck supple, no lymphadenopathy. Posterior pharynx non erythematous, without exudates. External ears appear normal, without discharge. Mucous membranes moist. Eyes PERRLA, EOM intact. There is no scleral icterus. No pallor noted. Cardiopulmonary: RRR, no murmurs, rubs or gallops, no JVD noted. Lungs CTAB in anterior and posterior thapa. No peripheral edema. Abdominal exam: Abdomen soft and non-distended. Abdomen non-tender to palpation in all 4 quadrants. Bowel sounds active in LLQ. No hepatosplenomegaly. No ecchymosis Neuro: CN II-XII grossly intact. No nuchal rigidity. No raccon eyes, no pineda sign, no hemotympanum. No cervical spinal tenderness. MSK: Medial aspect of right patella mildly tender to palpation. Mild erythema of the proximal aspect of patella, no ecchymoses. Flexion and extension of knee intact. No tenderness to palpation medial, lateral, posterior aspect of knee. No proximal tibia/fibular tenderness. Distal pulses equal and intact, radial pulse +2. No posterior calf tenderness bilaterally, homans sign negative bilaterally. Posterior tibialis and radial pulse +2 bilaterally. Sensation intact in upper and lower extremities. Full active ROM in upper and lower extremities, 5/5 stregnth. Limitations: no limitations Course Vital Signs 02/27/19 17:51 Temperature 98 F Pulse Rate 95 Respiratory 16 Rate Blood Pressure 151/99 O2 Sat by Pulse 100 Oximetry Medical Decision Making - Medical Decision Making 38-year-old female patient presents to ED with chief complaint of right knee injury. Patient reports that she was playing with children outside, slipped and fell forward onto a flexed knee. Patient she felt a pop on her patella. Patient states that she has pain in the medial aspect of her patella. Patient has been ambulatory, however with pain. Patient denies any trauma to head or neck. Patient denies any other complaints at this time. Patient states that sh e is not or breast feeding. Pt VSS, afebrle. Physical exam displayed: Medial aspect of right patella mildly tender to palpation. Mild erythema of the proximal aspect of patella, no ecchymoses. Flexion and extension of knee intact. No tenderness to palpation medial, lateral, posterior aspect of knee. No proximal tibia/fibular tenderness. Distal pulses equal and intact, radial pulse +2. Plain film of R knee displayed mild soft tissue swelling, no fracture. Patient was placed in knee immobilizer and will follow up with orthopedic consult 1-2 days. Patient will use crutches and not bear weight and right lower extremity. Patient will follow-up with primary care by 1-2 days, will return here if condition worsens. Case discussed with Dr. Lam. Disposition Clinical Impression: Knee sprain Disposition: HOME SELF-CARE Condition: Stable Instructions (If sedation given, give patient instructions): Knee Sprain (ED) Additional Instructions: Patient to adhere to previously discussed treatment plan and will take med ication(s) as directed. Patient to follow up with PCP in 1-2 days. Patient to return to ED if symptoms do not improve. Follow-up with primary care provider in 1-2 days. Follow with orthopedic consu lt 1-2 days. Continue her knee immobilizer, use crutches, do not bear weight on right lower extremity. Is patient prescribed a controlled substance at d/c from ED?: No Referrals: None,Stated [Primary Care Provider] - 1-2 days Phil Woodard DO [Doctor of Osteopathic Medicine] - 1-2 days
== END 2019-02-27 19:18 | disposition home or self-care (01) ==
LOC: EC 17:46
DX: S83.91XA Sprain of unspecified site of right knee, initial encounter (principal); F17.200 Nicotine dependence, unspecified, uncomplicated; Z91.030 Bee allergy status; W01.0XXA Fall on same level from slipping, tripping and stumbling without subsequent striking against object, initial encounter
CPT/HCPCS: 73564; 99284; L1830

== ENCOUNTER 2019-04-12 10:30 | Emergency (ER) | payer OTHER ==
[2019-04-12 10:42] VITALS: BP 119/77; PULSE 80; RESP 18; TEMP 98.1
[2019-04-12] MEDS ORDERED: ACET/COD 300 MG/30 MG STARTER PACK 6 TAB BTL PO STA (10:52)
--- NOTE | 2019-04-12 10:52 | ED ---
ENT HPI - General Chief complaint: Dental/Oral Stated complaint: dental pain Time Seen by Provider: 04/12/19 10:44 Source: patient, RN notes reviewed Mode of arrival: ambulatory Limitations: no limitations - History of Present Illness Initial comments: 38-year-old female presents emergency Department for dental pain. Patient states it she's had recurrent dental abscess. Patient states her dentist currently her to begin have been rubbing causing an open sore. Patient states is nonswollen that area. Patient reports no fevers or chills. Patient states that she has not follow-up with dentist for adjustment. Patient denies any chest pain or shortness of breath. Patient has any difficulty swallowing denies headache or dizziness - Related Data Home Medications Medication Instructions Recorded Confirmed Ibuprofen [Motrin Ib] 400 mg PO Q6H PRN 02/27/19 02/27/19 Previous Rx's Medication Instructions Recorded Ibuprofen [Motrin] 600 mg PO Q8HR PRN #30 tab 04/12/19 Penicillin V Potassium [Pen Vee K] 500 mg PO QID #40 tablet 04/12/19 Allergies Allergy/AdvReac Type Severity Reaction Status Date / Time venom-honey bee Allergy Anaphylaxis Verified 04/12/19 10:43 [bee venom (honey bee)] Review of Systems ROS Statement: Those systems with pertinent positive or pertinent negative responses have been documented in the HPI. ROS Other: All systems not noted in ROS Statement are negative. 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 Abcess in jaw (hospitalized in [place] 12/2014) History of Any Multi-Drug Resistant Organisms: MRSA Date of last positivie culture/infection: 12/2014 MDRO Source:: inside mouth Additional Past Surgical History / Comment(s): D&C x5 Past Anesthesia/Blood Transfusion Reactions: No Reported Reaction Past Psychological History: Anxiety, Bipolar, Depression Smoking Status: Current some day smoker - Past Family History Mother Family Medical History: Hyperlipidemia General Exam Limitations: no limitations General appearance: alert, in no apparent distress Head exam: Present: atraumatic, normocephalic, normal inspection Eye exam: Present: normal appearance, PERRL, EOMI. Absent: scleral icterus, conjunctival injection, periorbital swelling ENT exam: Present: mucous membranes moist, TM's normal bilaterally, normal external ear exam. Absent: normal exam, normal oropharynx (Dental abscess left upper gumline) Neck exam: Present: normal inspection, full ROM. Absent: tenderness, meningismus, lymphadenopathy Respiratory exam: Present: normal lung sounds bilaterally. Absent: respiratory distress, wheezes, rales, rhonchi, stridor Cardiovascular Exam: Present: regular rate, normal rhythm, normal heart sounds. Absent: systolic murmur, diastolic murmur, rubs, gallop, clicks GI/Abdominal exam: Present: soft, normal bowel sounds. Absent: distended, tenderness, guarding, rebound, rigid Course Vital Signs 04/12/19 10:41 Temperature 98.1 F Pulse Rate 80 Respiratory 18 Rate Blood Pressure 119/77 O2 Sat by Pulse 98 Oximetry Medical Decision Making - Medical Decision Making 38-year-old female presents for dental pain. Patient has broken dental abscess left upper gumline this may be caused by her dentures rubbing. Patient was placed on antibiotics will be given a short course pain meds return parameters were discussed. She is advised follow-up with her dentist the next 1-2 days Disposition Clinical Impression: Gingival abscess Disposition: HOME SELF-CARE Condition: Stable Instructions (If sedation given, give patient instructions): Dental Abscess (ED) Additional Instructions: Please return to the Emergency Department if symptoms worsen or any other concerns. Prescriptions: Ibuprofen [Motrin] 600 mg PO Q8HR PRN #30 tab PRN Reason: Pain Penicillin V Potassium [Pen Vee K] 500 mg PO QID #40 tablet Is patient prescribed a controlled substance at d/c from ED?: No Referrals: None,Stated [Primary Care Provider] - 1-2 days Time of Disposition: 10:52
== END 2019-04-12 10:59 | disposition home or self-care (01) ==
LOC: EC 10:30
DX: K05.319 Chronic periodontitis, localized, unspecified severity (principal); K04.7 Periapical abscess without sinus; F17.200 Nicotine dependence, unspecified, uncomplicated; Z86.14 Personal history of Methicillin resistant Staphylococcus aureus infection; Z91.030 Bee allergy status
CPT/HCPCS: 99282

== ENCOUNTER 2019-05-31 14:40 | Emergency (ER) | payer OTHER ==
[2019-05-31 14:47] VITALS: RESP 18; TEMP 99
[2019-05-31] MEDS ORDERED: AMOXIC-POT CLAV 875-125MG 1 EACH TAB PO STA (15:12)
[2019-05-31] MEDS ORDERED: KETOROLAC 30 MG/ML 1 ML VIAL IM STA (15:12)
--- NOTE | 2019-05-31 15:18 | ED ---
ENT HPI - General Chief complaint: ENT Stated complaint: Head Injury, Loss of Hearing Time Seen by Provider: 05/31/19 14:50 Source: patient Mode of arrival: ambulatory Limitations: no limitations - History of Present Illness Initial comments: 39-year-old female patient presents to the emergency department today for evaluation of decreased hearing and pain to the left ear. Patient states one week ago she was struck in the ear with a football. Patient states she had pain and decreased hearing right after the injury. Patient states the pain has been worsening over the last week. States she now feels as though she has decreased hearing in the right ear. She denies any drainage from the ears. Denies fever or chills. States she is experiencing some dizziness. She states she did use some over the counter earache drops a few days ago which caused a sharp pain to the left ear. States that she was able to taste the medication after instillation. She denies headache, blurred vision, double vision. Patient denies any recent rash, shortness breath, chest pain, abdominal pain, nausea, vomiting, diarrhea, constipation, back pain, numbness, tingling, weakness, hematuria, dysuria, urinary urgency, urinary frequency, headache, visual changes, or any other complaints. - Related Data Home Medications Medication Instructions Recorded Confirmed Ibuprofen [Motrin Ib] 400 mg PO Q6H PRN 02/27/19 02/27/19 Previous Rx's Medication Instructions Recorded Ibuprofen [Motrin] 600 mg PO Q8HR PRN #30 tab 04/12/19 Penicillin V Potassium [Pen Vee K] 500 mg PO QID #40 tablet 04/12/19 Amoxic-Pot Clav 875-125Mg 1 tab PO Q12HR #20 tablet 05/31/19 [Augmentin 875-125] Ibuprofen [Motrin] 600 mg PO Q8HR PRN #30 tab 05/31/19 Allergies Allergy/AdvReac Type Severity Reaction Status Date / Time venom-honey bee Allergy Anaphylaxis Verified 05/31/19 14:46 [bee venom (honey bee)] Review of Systems ROS Statement: Those systems with pertinent positive or pertinent negative responses have been documented in the HPI. ROS Other: All systems not noted in ROS Statement are negative. 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 Abcess in jaw ([facility] in [place] 12/2014) History of Any Multi-Drug Resistant Organisms: MRSA Date of last positivie culture/infection: 12/2014 MDRO Source:: inside mouth Additional Past Surgical History / Comment(s): D&C x5 Past Anesthesia/Blood Transfusion Reactions: No Reported Reaction Past Psychological History: Anxiety, Bipolar, Depression Smoking Status: Current some day smoker Past Alcohol Use History: None Reported Past Drug Use History: None Reported - Past Family History Mother Family Medical History: Hyperlipidemia General Exam Limitations: no limitations General appearance: alert, in no apparent distress, other (This is a well- developed, well-nourished adult female patient in no acute distress. Vital signs upon presentation are temperature 99.0F, pulse 76, respirations 18, blood pressure 176/83, pulse ox 100% on room air.) Eye exam: Present: normal appearance, PERRL, EOMI. Absent: scleral icterus, conjunctival injection, periorbital swelling ENT exam: Present: normal oropharynx, mucous membranes moist. Absent: TM's normal bilaterally (Right tympanic membrane is intact, pearly, without effusion. Left tympanic membrane is bulging, presence of purulent effusion, no obvious sign of perforation.) Respiratory exam: Present: normal lung sounds bilaterally. Absent: respiratory distress, wheezes, rales, rhonchi, stridor Cardiovascular Exam: Present: regular rate, normal rhythm, normal heart sounds. Absent: systolic murmur, diastolic murmur, rubs, gallop, clicks Neurological exam: Present: alert, oriented X3, CN II-XII intact Psychiatric exam: Present: normal affect, normal mood Skin exam: Present: warm, dry, intact, normal color. Absent: rash Course Vital Signs 05/31/19 14:43 Temperature 99.0 F Pulse Rate 76 Respiratory 18 Rate Blood Pressure 176/83 O2 Sat by Pulse 100 Oximetry Medical Decision Making - Medical Decision Making 39-year-old female patient presented to the emergency department today for evaluation of left ear pain, decreased hearing. Physical examination did reveal a bulging tympanic membrane with evidence of purulent effusion. Given patient's symptoms and history there is concern for perforation. Patient reported that she instilled [id number] earache drops, which caused intense pain, and she was able to taste the medication afterward. She will be started on Augmentin. Given pain medication. She is instructed to follow-up with the ear, nose, throat specialist for further evaluation as soon as possible. Return parameters were discussed in detail. She verbalizes understanding and agrees with this plan. Disposition Clinical Impression: Left otitis media, Unspecified perforation of tympanic membrane, left ear Disposition: HOME SELF-CARE Condition: Good Instructions (If sedation given, give patient instructions): Ear Infection (ED), Barotrauma (ED) Additional Instructions: Take medication as directed. Follow up with the ENT specialist for recheck as soon as possible. Follow up with the primary care physician for recheck in 1-2 days. Return to the emergency department for any new, worsening, or concerning symptoms. [facility] Prescriptions: Amoxic-Pot Clav 875-125Mg [Augmentin 875-125] 1 tab PO Q12HR #20 tablet Ibuprofen [Motrin] 600 mg PO Q8HR PRN #30 tab PRN Reason: Pain Is patient prescribed a controlled substance at d/c from ED?: No Referrals: Haroldo Sweet DO [Primary Care Provider] - 1-2 days Jonny Whitley DO [Doctor of Osteopathic Medicine] - 1-2 days Time of Disposition: 15:18
[2019-05-31 15:39] VITALS: BP 148/79; PULSE 64
== END 2019-05-31 15:39 | disposition home or self-care (01) ==
LOC: EC 14:40
DX: S09.22XA Traumatic rupture of left ear drum, initial encounter (principal); H66.92 Otitis media, unspecified, left ear; F17.200 Nicotine dependence, unspecified, uncomplicated; Z91.030 Bee allergy status; Z86.14 Personal history of Methicillin resistant Staphylococcus aureus infection; W21.01XA Struck by football, initial encounter
CPT/HCPCS: 99283; 96372; J1885

== ENCOUNTER → 2019-09-02 | Outpatient (CLI) | payer OTHER ==
--- NOTE | 2019-09-02 14:03 | XR ---
EXAMINATION TYPE: XR lumbar spine 2 or 3V DATE OF EXAM: 09/02/2019 CLINICAL HISTORY: pain TECHNIQUE: Three views of the lumbar spine are submitted. COMPARISON: None. FINDINGS: There are 5 lumbar type vertebral bodies identified. Mild curvature convex to the right. The lumbar spine shows satisfactory alignment without evidence of acute fracture or dislocation. Vertebral body heights are within normal limits. Severe degenerative disc space narrowing with vacuum disc at L5-S 1. Endplate sclerosis and ventral spondylosis identified. The overlying soft tissue appears unremark able. IMPRESSION: No acute fracture or dislocation is seen in the lumbar spine. ICD 10 NO FRACTURE, INITIAL EVALUATION
== END | disposition home or self-care (01) ==
LOC: RADXRMAIN 13:32
PROVIDERS: ATTEND Internal Medicine
DX: M54.41 Lumbago with sciatica, right side (principal)
CPT/HCPCS: 72100

== ENCOUNTER → 2019-09-21 | Outpatient (CLI) | payer OTHER ==
--- NOTE | 2019-09-21 11:38 | MR ---
EXAMINATION TYPE: MR lumbar spine wo con DATE OF EXAM: 09/21/2019 COMPARISON: 09/02/2019 HISTORY: Low back pain TECHNIQUE: T1 and T2 axial and sagittal images of the lumbar spine are submitted. FINDINGS: There is no abnormal signal seen within the visualized spinal cord or paraspinal soft tissu es. At L1-2 there is no disc herniation, degenerative disc disease, canal stenosis, or foraminal encroach ment. At L2-3 there is no disc herniation, degenerative disc disease, canal stenosis, or foraminal encroach ment. At L3-4 there is mild degenerative disc disease and hypertrophic change of the facets. Mild broad-bas ed disc bulging with no significant foraminal encroachment. At L4-5 there is mild degenerative disc disease. There is hypertrophic change of the ligamentum flavu m and facets. Broad-based disc bulging results in mild mass effect upon the thecal sac but no canal s tenosis. There is mild bilateral foraminal encroachment. At L5-S1 there is moderate to severe degenerative disc disease with discogenic marrow changes. Anteri or spurring noted. There is a broad-based central and left paracentral disc protrusion with mild mass effect on the nerve root exiting the thecal sac. Facet arthropathy noted. Mild bilateral foraminal e ncroachment. IMPRESSION: 1. Moderate to severe degenerative disc disease L5-S1 with broad-based central disc protrusion greate r paracentrally to left. There is mild mass effect upon the left nerve root exiting the thecal sac. C orrelate clinically. 2. Degenerative disc disease and hypertrophic changes L4-L5 with broad-based disc bulging results in mild mass effect on the thecal sac and mild bilateral foraminal encroachment. 3. Disc bulging L3-L4 and degenerative disc disease with facet arthropathy but no canal stenosis, foc al herniation or significant foraminal encroachment.
== END | disposition home or self-care (01) ==
LOC: RADMRIMAIN 10:50
PROVIDERS: ATTEND Nurse Practitioner Adult Health
DX: M51.26 Other intervertebral disc displacement, lumbar region (principal); M51.27 Other intervertebral disc displacement, lumbosacral region; M51.36 Other intervertebral disc degeneration, lumbar region; M51.37 Other intervertebral disc degeneration, lumbosacral region; M46.96 Unspecified inflammatory spondylopathy, lumbar region; R90.89 Other abnormal findings on diagnostic imaging of central nervous system
CPT/HCPCS: 72148

== ENCOUNTER 2021-11-01 14:13 | Emergency (ER) | payer OTHER ==
[2021-11-01 14:29] VITALS: TEMP 98.4
[2021-11-01 14:57] LABS: Basophils # (A) 0.1 k/uL (0-0.2); Basophils % (A) 1 %; Eosinophils # (A) 0.1 k/uL (0-0.7); Eosinophils % (A) 1 %; HCT 47.9 % (34.0-46.0); HGB 15.5 gm/dL (11.4-16.0); Lymphocytes # (A) 2.8 k/uL (1.0-4.8); Lymphocytes % (A) 34 %; MCH 31.7 pg (25.0-35.0); MCHC 32.4 g/dL (31.0-37.0); MCV 97.8 fL (80.0-100.0); Mean Platelet Volume 6.4; Monocytes # (A) 0.3 k/uL (0-1.0); Monocytes % (A) 3 %; Neutrophils % (A) 60 %; Platelet Count 507 k/uL (150-450); RDW 14.6 % (11.5-15.5); WBC 8.4 k/uL (3.8-10.6)
[2021-11-01 15:00] LABS: ALT 14 U/L (4-34); AST 35 U/L (14-36); Acetaminophen <10.0 ug/mL; African American GFR (CKD) >90 (>60 ml/min/1.73 sqM); Albumin 4.8 g/dL (3.5-5.0); Alkaline Phosphatase 78 U/L (38-126); Anion Gap 9 mmol/L; Blood Urea Nitrogen 8 mg/dL (7-17); Calcium 9.1 mg/dL (8.4-10.2); Carbon Dioxide 22 mmol/L (22-30); Chloride 114 mmol/L (98-107); Glucose 97 mg/dL (74-99); Non-African American GFR(CKD) >90 (>60 ml/min/1.73 sqM); Potassium 4.1 mmol/L (3.5-5.1); Salicylate <1.0 mg/dL; Sodium 145 mmol/L (137-145); Total Bilirubin 0.6 mg/dL (0.2-1.3)
[2021-11-01 15:03] LABS: Alcohol 249 mg/dL
[2021-11-01 15:11] LABS: INR 0.9 (<1.2); Partial Thromboplastin Time 22.9 sec (22.0-30.0); Prothrombin Time 10.1 sec (9.0-12.0)
[2021-11-01 15:11] LABS: Appearance,Urine Clear (Clear); Bilirubin,Urine Negative (Negative); Blood,Urine Negative (Negative); Color,Urine Light Yellow; Glucose,Urine (UA) Negative (Negative); Ketones,Urine Negative (Negative); Leukocyte Esterase,Urine Negative (Negative); Nitrite,Urine Negative (Negative); Protein,Urine Negative (Negative); Specific Gravity,Urine 1.005 (1.001-1.035); Urobilinogen,Urine <2.0 mg/dL (<2.0)
[2021-11-01 15:14] LABS: Amphetamine Screen,Urine Not Detected (NotDetected); Barbiturate Screen,Urine Not Detected (NotDetected); Benzodiazepines Screen,Urine Not Detected (NotDetected); Cocaine Screen,Urine Not Detected (NotDetected); Methadone Screen, Urine Not Detected (NotDetected); Opiate Screen,Urine Not Detected (NotDetected); Oxycodone Screen, Urine Not Detected (NotDetected); Phencyclidine Screen,Urine Not Detected (NotDetected); Tricyclic Antidepressant,Urine Not Detected (NotDetected); Urn Cannabinoid Scrn Not Detected (NotDetected)
--- NOTE | 2021-11-01 16:18 | ED ---
Psych HPI - General Chief Complaint: Psychiatric Symptoms Stated Complaint: Mental Health Source: EMS Mode of arrival: EMS - History of Present Illness Initial Comments: Margi is a 41-year-old female is brought to the ER today via ambulance for psychiatric evaluation. The patient apparently overdosed on Klonopin and alcohol. EMS reported patient also had access to Tylenol #3 which the patient denied taking these. Patient states that she was just feeling very sad overwhelmed, she reports she took extra Klonopin and she had been drinking. She states that she immediately felt remorse and reached out to multiple friends and family members telling them what happened. EMS was contacted and she willingly came to the hospital. Patient states that she has a known alcohol problem and is entering [facility] facility on Friday. - Related Data Home Medications Medication Instructions Recorded Confirmed Albuterol Sulfate [Proair Hfa] 1 - 2 puff INHALATION RT-Q6H PRN 11/01/21 11/01/21 HYDROcodone/APAP 5-325MG [Fossil 1 tab PO Q12H PRN 11/01/21 11/01/21 5-325] Ibuprofen [Motrin] 600 mg PO Q8HR PRN 11/01/21 11/01/21 clonazePAM [KlonoPIN] 2 mg PO DAILY 11/01/21 11/01/21 tiZANidine [Zanaflex] 2 mg PO Q12H 11/01/21 11/01/21 Allergies Allergy/AdvReac Type Severity Reaction Status Date / Time venom-honey bee Allergy Anaphylaxis Verified 11/01/21 15:34 [bee venom (honey bee)] Review of Systems ROS Statement: Those systems with pertinent positive or pertinent negative responses have been documented in the HPI. ROS Other: All systems not noted in ROS Statement are negative. 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 Abcess in jaw (hospitalized in [place] 12/2014) History of Any Multi-Drug Resistant Organisms: MRSA Date of last positivie culture/infection: 12/2014 MDRO Source:: inside mouth Additional Past Surgical History / Comment(s): D&C x5 Past Anesthesia/Blood Transfusion Reactions: No Reported Reaction Past Psychological History: Anxiety, Bipolar, Depression Smoking Status: Current every day smoker Past Alcohol Use History: None Reported Past Drug Use History: None Reported - Past Family History Mother Family Medical History: Hyperlipidemia General Exam - General Exam Comments Initial Comments: Physical Exam GENERAL: Patient is well-developed and well-nourished. Patient is nontoxic and well-hydrated and is in no distress. HENT: Normocephalic, Atraumatic. EYES: PERRL, EOMI PULMONARY: Unlabored respirations. CARDIOVASCULAR: RRR Warm and well perfused extremities ABDOMEN: Non-distended SKIN: No rashes or bruising : Deferred NEUROLOGIC: Alert and oriented Initially speech was slurred consistent with intoxication however patient sobered up and had clear speech was awake alert oriented with a normal gait MUSCULOSKELETAL: Moving all extremities with no apparent injury PSYCHIATRIC: Situational depression but no suicidal or homicidal ideation Limitations: altered mental status Course Vital Signs 11/01/21 11/01/21 11/01/21 14:16 16:02 21:24 Temperature 98.4 F Pulse Rate 80 93 84 Respiratory 16 18 16 Rate Blood Pressure 114/75 144/77 139/87 O2 Sat by Pulse 95 98 98 Oximetry Medical Decision Making - Medical Decision Making The patient was seen and evaluated, history is obtained from EMS and the patient Toxicologic workup was initiated due to ingestion Labs are relatively unremarkable Tylenol level is undetectable therefore I do not believe patient took any Tylenol 3 Patient has been sleeping but wakes to voice. There is no respiratory depression. Patient was observed per poison control's recommendation, patient reported feeling sober and requested to be retested. Her breath alcohol and improved significantly she consented to a repeat blood alcohol which had also improved she was determined to be sober and cleared for evaluation by emergency psychiatric services. Patient was evaluated by the psychiatric services at [facility]. Patient was able to agree to an extensive safety plan. She has a safe disposition tonight being discharged with a friend who will ensure the patient has no access to medications for possible self-harm. She continues to be tearful and remorseful patient is very goal oriented future oriented once take it clean wants to improve her life and take care of her children. At this time do feel patient is stable for discharge home. - Lab Data Result diagrams: 11/01/21 14:40 11/01/21 14:40 Lab Results 11/01/21 11/01/21 11/01/21 Range/Units 14:40 14:40 14:40 WBC 8.4 (3.8-10.6) k/uL RBC 4.90 (3.80-5.40) m/uL Hgb 15.5 (11.4-16.0) gm/dL Hct 47.9 H (34.0-46.0) % MCV 97.8 (80.0-100.0) fL MCH 31.7 (25.0-35.0) pg MCHC 32.4 (31.0-37.0) g/dL RDW 14.6 (11.5-15.5) % Plt Count 507 H (150-450) k/uL MPV 6.4 Neutrophils % 60 % Lymphocytes % 34 % Monocytes % 3 % Eosinophils % 1 % Basophils % 1 % Neutrophils # 5.0 (1.3-7.7) k/uL Lymphocytes # 2.8 (1.0-4.8) k/uL Monocytes # 0.3 (0-1.0) k/uL Eosinophils # 0.1 (0-0.7) k/uL Basophils # 0.1 (0-0.2) k/uL PT 10.1 (9.0-12.0) sec INR 0.9 (<1.2) APTT 22.9 (22.0-30.0) sec Sodium 145 (137-145) mmol/L Potassium 4.1 (3.5-5.1) mmol/L Chloride 114 H (98-107) mmol/L Carbon Dioxide 22 (22-30) mmol/L Anion Gap 9 mmol/L BUN 8 (7-17) mg/dL Creatinine 0.63 (0.52-1.04) mg/dL Est GFR (CKD-EPI)AfAm >90 (>60 ml/min/1.73 sqM) Est GFR (CKD-EPI)NonAf >90 (>60 ml/min/1.73 sqM) Glucose 97 (74-99) mg/dL Calcium 9.1 (8.4-10.2) mg/dL Total Bilirubin 0.6 (0.2-1.3) mg/dL AST 35 (14-36) U/L ALT 14 (4-34) U/L Alkaline Phosphatase 78 (38-126) U/L Total Protein 8.0 (6.3-8.2) g/dL Albumin 4.8 (3.5-5.0) g/dL Urine Color Urine Appearance (Clear) Urine pH (5.0-8.0) Ur Specific [place] (1.001-1.035) Urine Protein (Negative) Urine Glucose (UA) (Negative) Urine Ketones (Negative) Urine Blood (Negative) Urine Nitrite (Negative) Urine Bilirubin (Negative) Urine Urobilinogen (<2.0) mg/dL Ur Leukocyte Esterase (Negative) Urine HCG, Qual (Not Detectd) Salicylates <1.0 mg/dL Urine Opiates Screen (NotDetected) Ur Oxycodone Screen (NotDetected) Urine Methadone Screen (NotDetected) Ur Propoxyphene Screen (NotDetected) Acetaminophen <10.0 ug/mL Ur Barbiturates Screen (NotDetected) U Tricyclic Antidepress (NotDetected) Ur Phencyclidine Scrn (NotDetected) Ur Amphetamines Screen (NotDetected) U Methamphetamines Scrn (NotDetected) U Benzodiazepines Scrn (NotDetected) Urine Cocaine Screen (NotDetected) U Marijuana (THC) Screen (NotDetected) Serum Alcohol 249 H* mg/dL 11/01/21 11/01/21 11/01/21 Range/Units 14:57 14:57 19:44 WBC (3.8-10.6) k/uL RBC (3.80-5.40) m/uL Hgb (11.4-16.0) gm/dL Hct (34.0-46.0) % MCV (80.0-100.0) fL MCH (25.0-35.0) pg MCHC (31.0-37.0) g/dL RDW (11.5-15.5) % Plt Count (150-450) k/uL MPV Neutrophils % % Lymphocytes % % Monocytes % % Eosinophils % % Basophils % % Neutrophils # (1.3-7.7) k/uL Lymphocytes # (1.0-4.8) k/uL Monocytes # (0-1.0) k/uL Eosinophils # (0-0.7) k/uL Basophils # (0-0.2) k/uL PT (9.0-12.0) sec INR (<1.2) APTT (22.0-30.0) sec Sodium (137-145) mmol/L Potassium (3.5-5.1) mmol/L Chloride (98-107) mmol/L Carbon Dioxide (22-30) mmol/L Anion Gap mmol/L BUN (7-17) mg/dL Creatinine (0.52-1.04) mg/dL Est GFR (CKD-EPI)AfAm (>60 ml/min/1.73 sqM) Est GFR (CKD-EPI)NonAf (>60 ml/min/1.73 sqM) Glucose (74-99) mg/dL Calcium (8.4-10.2) mg/dL Total Bilirubin (0.2-1.3) mg/dL AST (14-36) U/L ALT (4-34) U/L Alkaline Phosphatase (38-126) U/L Total Protein (6.3-8.2) g/dL Albumin (3.5-5.0) g/dL Urine Color Light Yellow Urine Appearance Clear (Clear) Urine pH 6.0 (5.0-8.0) Ur Specific [place] 1.005 (1.001-1.035) Urine Protein Negative (Negative) Urine Glucose (UA) Negative (Negative) Urine Ketones Negative (Negative) Urine Blood Negative (Negative) Urine Nitrite Negative (Negative) Urine Bilirubin Negative (Negative) Urine Urobilinogen <2.0 (<2.0) mg/dL Ur Leukocyte Esterase Negative (Negative) Urine HCG, Qual Not Detected (Not Detectd) Salicylates mg/dL Urine Opiates Screen Not Detected (NotDetected) Ur Oxycodone Screen Not Detected (NotDetected) Urine Methadone Screen Not Detected (NotDetected) Ur Propoxyphene Screen Not Detected (NotDetected) Acetaminophen ug/mL Ur Barbiturates Screen Not Detected (NotDetected) U Tricyclic Antidepress Not Detected (NotDetected) Ur Phencyclidine Scrn Not Detected (NotDetected) Ur Amphetamines Screen Not Detected (NotDetected) U Methamphetamines Scrn Not Detected (NotDetected) U Benzodiazepines Scrn Not Detected (NotDetected) Urine Cocaine Screen Not Detected (NotDetected) U Marijuana (THC) Screen Not Detected (NotDetected) Serum Alcohol 49 mg/dL - EKG Data -: EKG Interpreted by Me EKG Comments: EKG was obtained due to oxygen congestion, EKG was obtained at 1447 rate is 80 rhythm is sinus tachycardia normal axis, normal intervals, IN 139 QRS 90 QTc 425 there are no acute ST elevations or depressions there is no evidence of ischemia or infarction Disposition Clinical Impression: Depression Disposition: HOME SELF-CARE Additional Instructions: Follow your safety plan, call 911 if you feel you are a danger to yourself or others Good luck in treatment at [facility]! Is patient prescribed a controlled substance at d/c from ED?: No Referrals: Liu Peter MD [Primary Care Provider] - 1-2 days
[2021-11-01] MEDS ORDERED: ACETAMINOPHEN TAB 325 MG TAB PO STA (19:35)
[2021-11-01 21:25] VITALS: BP 139/87; PULSE 84; RESP 16
== END 2021-11-01 22:51 | disposition home or self-care (01) ==
LOC: EC 14:13
DX: F32.A Depression, unspecified (principal); F17.200 Nicotine dependence, unspecified, uncomplicated; I10 Essential (primary) hypertension; Z91.030 Bee allergy status; Z79.899 Other long term (current) drug therapy
CPT/HCPCS: 82075; 36415; 93005; 80053; 85025; 85610; 85730; 81003; 81025; 80306; 80143; 80179; 99284; G0480; 80320

== ENCOUNTER 2022-07-04 19:48 | Emergency (ER) | payer OTHER ==
[2022-07-04 19:56] VITALS: BP 130/82; PULSE 73; RESP 18; TEMP 97.8
== END 2022-07-04 20:56 | disposition home or self-care (01) ==
LOC: EC 19:48
DX: Z53.21 Procedure and treatment not carried out due to patient leaving prior to being seen by health care provider (principal)
CPT/HCPCS: 99499

== ENCOUNTER 2025-04-14 13:04 | Emergency (ER) | payer OTHER ==
[2025-04-14 13:14] VITALS: RESP 18
[2025-04-14] MEDS: SODIUM CHLORIDE 0.9% 1,000 ML IV ONE (14:21)
[2025-04-14 14:30] LABS: Basophils # (A) 0.02 10*3/uL (0.00-0.10); Basophils % (A) 0.3 %; Eosinophils # (A) 0.05 10*3/uL (0.04-0.35); Eosinophils % (A) 0.7 %; HCT 40.1 % (37.2-46.3); HGB 13.7 g/dL (12.0-15.0); Lymphocytes # (A) 2.41 10*3/uL (0.90-5.00); Lymphocytes % (A) 33.0 %; MCH 31.0 pg (27.0-32.0); MCHC 34.2 g/dL (32.0-37.0); MCV 90.7 fL (80.0-97.0); Monocytes # (A) 0.49 10*3/uL (0.20-1.00); Monocytes % (A) 6.7 %; Neutrophils # (A) 4.32 10*3/uL (1.80-7.70); Neutrophils % (A) 59.2 %; Platelet Count 358 10*3/uL (140-440); RBC 4.42 10*6/uL (4.10-5.20); RDW 12.2 % (11.5-14.5); WBC 7.30 10*3/uL (4.50-10.00)
--- NOTE | 2025-04-14 14:48 | ED ---
General Adult HPI - General Chief complaint: Psychiatric Symptoms Stated complaint: Psych Time Seen by Provider: 04/14/25 13:10 Source: patient, EMS, RN notes reviewed, old records reviewed Mode of arrival: EMS - History of Present Illness Initial comments: This is a 44-year-old female who resides at [facility]. Patient was sent to get an MRI on her own even though she has had some issues lately over the last few months with issues of eloping on multiple occasions. Patient did a was found wandering around the city and the police brought her in. When [facility] was contacted they wanted her to be evaluated for psychiatric evaluation because this has been ongoing for a few months. Patient has not exhibited any intention of hurting yourself or anyone else or having had any delusions or claiming to have any hallucinations. - Related Data Home Medications Medication Instructions Recorded Confirmed Acetaminophen Tab [Tylenol] 650 mg PO Q6H PRN 04/14/25 04/14/25 Atorvastatin [Lipitor] 40 mg PO DAILY 04/14/25 04/14/25 Gabapentin [Neurontin] 100 mg PO TID 04/14/25 04/14/25 Lacosamide 200 mg PO BID 04/14/25 04/14/25 Mirtazapine 7.5 mg PO HS 04/14/25 04/14/25 QUEtiapine [SEROquel] 25 mg PO HS 04/14/25 04/14/25 Sertraline [Zoloft] 75 mg PO DAILY 04/14/25 04/14/25 Topiramate 50 mg PO Q12H 04/14/25 04/14/25 diazePAM [Valtoco] 10 mg NASAL ONCE PRN 04/14/25 04/14/25 Allergies Allergy/AdvReac Type Severity Reaction Status Date / Time venom-honey bee Allergy Anaphylaxis Verified 04/14/25 14:29 [bee venom (honey bee)] Review of Systems ROS Statement: Those systems with pertinent positive or pertinent negative responses have been documented in the HPI. ROS Other: All systems not noted in ROS Statement are negative. Past Medical History Past Medical History: CVA/TIA, Hypertension, Liver Disease Additional Past Medical History / Comment(s): States history of hole in heart, alcoholism, miscarriages x 5. the last one was in 2007. Abcess in jaw (hospitalized in [place] 12/2014) History of Any Multi-Drug Resistant Organisms: MRSA Date of last positivie culture/infection: 12/2014 MDRO Source:: inside mouth Additional Past Surgical History / Comment(s): D&C x5 Past Anesthesia/Blood Transfusion Reactions: No Reported Reaction Past Psychological History: Anxiety, Bipolar, Depression Smoking Status: Current every day smoker Past Alcohol Use History: Rare Past Drug Use History: None Reported - Past Family History Mother Family Medical History: Hyperlipidemia General Exam - General Exam Comments Initial Comments: GENERAL: Patient is well-developed and well-nourished. Patient is nontoxic and well- hydrated and is in no acute distress. ENT: Neck is soft and supple. No significant lymphadenopathy is noted. Oropharynx is clear. Moist mucous membranes. Neck has full range of motion without eliciting any pain. EYES: The sclera were anicteric and conjunctiva were pink and moist. Extraocular movements were intact and pupils were equal round and reactive to light. Eyelids were unremarkable. PULMONARY: Unlabored respirations. Good breath sounds bilaterally. No audible rales r honchi or wheezing was noted. CARDIOVASCULAR: There is a regular rate and rhythm without any murmurs gallops or rubs. ABDOMEN: Soft and nontender with normal bowel sounds. SKIN: Skin is clear with no lesions or rashes and otherwise unremarkable. NEUROLOGIC: Patient is alert and oriented x 1. Cranial nerves II through XII are grossly intact. Motor and sensory are also intact. Normal speech, volume and content. Symmetrical smile. MUSCULOSKELETAL: Normal extremities with adequate strength and full range of motion. LYMPHATICS: No significant lymphadenopathy is noted PSYCHIATRIC: Patient does not answer most questions so it is difficult to assess Course Vital Signs 04/14/25 13:08 Temperature 99.2 F Pulse Rate 77 Respiratory 18 Rate Blood Pressure 104/68 O2 Sat by Pulse 96 Oximetry Medical Decision Making - Medical Decision Making Was pt. sent in by a medical professional or institution (, PA, BANK CREDIT CARD COLLECTION CLERK, urgent care, hospital, or [place] [facility] [place] facility...) When possible be specific @ -No Did you speak to anyone other than the patient for history (EMS, parent, family, police, friend...)? What history was obtained from this source @ -No Did you review nursing and triage notes (agree or disagree)? Why? @ -I reviewed and agree with nursing and triage notes Were old charts reviewed (outside hosp., previous admission, EMS record, old EKG, old radiological studies, urgent care reports/EKG's, [place] [facility] [place] records)? Report findings @ -No old charts were reviewed Differential Diagnosis? @ -Differential Mental Health Depression, anxiety, bipolar, psychosis, schizophrenia, borderline personality, situational depression, adjustment disorder, behavioral disorder, brain tumor, malingering, substance abuse, encephalopathy, medication reaction, dementia, hypothyroidism, degenerative neurologic disorder, lupus.... This is not meant to be all-inclusive list EKG interpreted by me (3pts min.). @ -As above X-rays interpreted by me (1pt min.). @ -None done CT interpreted by me (1pt min.). @ -None done U/S interpreted by me (1pt. min.). @ -None done What testing was considered but not performed or refused? (CT, X-rays, U/S, labs)? Why? @ -None What meds were considered but not given or refused? Why? @ -None Did you discuss the management of the patient with other professionals (professionals i.e. , PA, BANK CREDIT CARD COLLECTION CLERK, lab, RT, psych nurse, social work professor, net sql developer, teacher, home school liaison officer, case specialist)? Give summary @ -Patient was evaluated byEPS and they determined the patient did not meet any criteria to bring the patient to the psychiatric floor Was smoking cessation discussed for >3mins.? @ -No Was critical care preformed (if so, how long)? @ -No Were there social determinants of health that impacted care today? How? (Homelessness, low income, unemployed, alcoholism, drug addiction, transportation, low edu. Level, literacy, decrease access to med. care, usp, rehab)? @ -No Was there de-escalation of care discussed even if they declined (Discuss DNR or withdrawal of care, Hospice)? DNR status @ -No What co-morbidities impacted this encounter? (DM, HTN, Smoking, COPD, CAD, Cancer, CVA, ARF, Chemo, Hep., AIDS, mental health diagnosis, sleep apnea, morbid obesity)? @ -None Was patient admitted / discharged? Hospital course, mention meds given and route, prescriptions, significant lab abnormalities, going to OR and other pertinent info. @ -Patient remain confused which appears to be her baseline. Patient was not aggressive she was not complaining of any physical pain she did was in no distress at any time. Undiagnosed new problem with uncertain prognosis? @ -No Drug Therapy requiring intensive monitoring for toxicity (Heparin, Nitro, Insulin, Cardizem)? @ -No Were any procedures done? @ -No Diagnosis/symptom? @ -History of stroke with residual deficits Acute, or Chronic, or Acute on Chronic? @ -Chronic Uncomplicated (without systemic symptoms) or Complicated (systemic symptoms)? @ -Complicated Side effects of treatment? @ -No Exacerbation, Progression, or Severe Exacerbation? @ -No Poses a threat to life or bodily function? How? (Chest pain, USA, NM, pneumonia, PE, COPD, DKA, ARF, appy, cholecystitis, CVA, Diverticulitis, Homicidal, Cain icidal, threat to staff... and all critical care pts) @ -No - Lab Data Result diagrams: 04/14/25 14:21 04/14/25 14:21 Lab Results 04/14/25 04/14/25 Range/Units 14:21 14:21 WBC 7.30 (4.50-10.00) 10*3/uL RBC 4.42 (4.10-5.20) 10*6/uL Hgb 13.7 (12.0-15.0) g/dL Hct 40.1 (37.2-46.3) % MCV 90.7 (80.0-97.0) fL MCH 31.0 (27.0-32.0) pg MCHC 34.2 (32.0-37.0) g/dL Plt Count 358 (140-440) 10*3/uL MPV 8.5 L (9.5-12.2) fL Immature Gran % (Auto) 0.1 % Neutrophils % 59.2 % Lymphocytes % 33.0 % Monocytes % 6.7 % Eosinophils % 0.7 % Basophils % 0.3 % Immature Gran # 0.01 (0.00-0.04) 10*3/uL Neutrophils # 4.32 (1.80-7.70) 10*3/uL Lymphocytes # 2.41 (0.90-5.00) 10*3/uL Monocytes # 0.49 (0.20-1.00) 10*3/uL Eosinophils # 0.05 (0.04-0.35) 10*3/uL Basophils # 0.02 (0.00-0.10) 10*3/uL Sodium 144 (137-145) mmol/L Potassium 3.9 (3.5-5.1) mmol/L Chloride 106 (98-107) mmol/L Carbon Dioxide 25 (22-30) mmol/L Anion Gap 13 mmol/L BUN 13 (7-17) mg/dL Creatinine 0.56 (0.52-1.04) mg/dL Est GFR (CKD-EPI)AfAm >90 (>60 ml/min/1.73 sqM) Est GFR (CKD-EPI)NonAf >90 (>60 ml/min/1.73 sqM) Glucose 89 (74-99) mg/dL Calcium 9.8 (8.4-10.2) mg/dL Magnesium 1.8 (1.6-2.3) mg/dL Total Bilirubin 0.3 (0.2-1.3) mg/dL AST 18 (14-36) U/L ALT 14 (4-34) U/L Alkaline Phosphatase 85 (38-126) U/L Total Protein 7.3 (6.3-8.2) g/dL Albumin 4.8 (3.5-5.0) g/dL Serum Alcohol <10 mg/dL Disposition Clinical Impression: History of stroke with residual effects Disposition: HOME SELF-CARE Instructions (If sedation given, give patient instructions): Dementia (ED) Is patient prescribed a controlled substance at d/c from ED?: No Referrals: Liu Peter MD [Primary Care Provider] - 1-2 days Time of Disposition: 17:23
[2025-04-14 14:58] LABS: ALT 14 U/L (4-34); AST 18 U/L (14-36); African American GFR (CKD) >90 (>60 ml/min/1.73 sqM); Albumin 4.8 g/dL (3.5-5.0); Alkaline Phosphatase 85 U/L (38-126); Anion Gap 13 mmol/L; Blood Urea Nitrogen 13 mg/dL (7-17); Calcium 9.8 mg/dL (8.4-10.2); Carbon Dioxide 25 mmol/L (22-30); Chloride 106 mmol/L (98-107); Glucose 89 mg/dL (74-99); Magnesium 1.8 mg/dL (1.6-2.3); Non-African American GFR(CKD) >90 (>60 ml/min/1.73 sqM); Potassium 3.9 mmol/L (3.5-5.1); Sodium 144 mmol/L (137-145); Total Protein 7.3 g/dL (6.3-8.2)
[2025-04-14 18:01] VITALS: BP 125/79; PULSE 57; TEMP 98.4
[2025-04-14 18:44] LABS: Barbiturate Screen,Urine Not Detected (NotDetected); Benzodiazepines Screen,Urine Not Detected (NotDetected); Opiate Screen,Urine Not Detected (NotDetected); Oxycodone Screen, Urine Not Detected (NotDetected); Phencyclidine Screen,Urine Not Detected (NotDetected); Tricyclic Antidepressant,Urine Detected (NotDetected); Urn Cannabinoid Scrn Not Detected (NotDetected)
== END 2025-04-14 19:50 | disposition home or self-care (01) ==
LOC: EEVIPCON 13:04 → EC 13:04
DX: I69.30 Unspecified sequelae of cerebral infarction (principal); F17.200 Nicotine dependence, unspecified, uncomplicated; Z91.030 Bee allergy status
CPT/HCPCS: 36415; 80053; 83735; 85025; 80306; 99285; 96360; G0480; 80320